=== PATIENT | female | born 1970 | race Caucasian/White ===

== ENCOUNTER 2023-01-19 21:30 | Inpatient (IN) ==
[2023-01-19 22:20] LABS: Basophils # (auto) 0.07 K/uL (0-0.2); Eosinophils # (auto) 0.09 K/uL (0-0.50); Eosinophils % (auto) 1.2 %; Hematocrit (blood only) 40.4 % (37.0-47.0); Hemoglobin 13.9 g/dl (12.0-16.0); Immature Granulocytes # (auto) 0.01 K/uL (0.01-0.20); Immature Granulocytes % (auto) 0.1 %; Lymphocytes # (auto) 1.71 K/uL (1.2-3.4); Lymphocytes % (auto) 23.3 %; Mean Corpuscular Hemoglobin 31.4 pg (25.0-34.0); Mean Corpuscular Hgb Conc 34.4 g/dL (32.0-36.0); Mean Corpuscular Volume 91.4 fL (80.0-100.0); Mean Platelet Volume 9.2 fL (9.4-12.4); Monocytes # (auto) 0.47 K/uL (0.11-0.59); Monocytes % (auto) 6.4 %; Neutrophils # (auto) 4.98 K/uL (1.40-6.50); Platelet Count 283 K/uL (130-400); RDW Coefficient of Variation 12.4 % (11.5-14.5); RDW Standard Deviation 41.2 fL (36.4-46.3); Red Blood Count 4.42 M/uL (4.20-5.40); White Blood Count 7.33 K/ul (4.8-10.8)
[2023-01-19 22:23] LABS: Appearance Urine Clear (Clear); Bacteria Urine Automated Negative (Negative); Bilirubin Urine Negative (Negative); Blood Urine Negative (Negative); Cast Urine Automated 0 /lpf (0-5); Color Urine Yellow; Glucose Urine UA Negative (Negative); Ketones Urine Negative (Negative); Leukocyte Esterase Urine Trace (Negative); Nitrite Urine Negative (Negative); Protein Urine Negative (Negative); RBC Urine Automated 0-4 /hpf (0-4); Specific Gravity Urine 1.006 (1.000-1.030); Urobilinogen Urine Negative (Negative); pH Urine 5.5 (4.5-7.5)
[2023-01-19 22:39] LABS: Acetaminophen < 3 ug/ml (10-30); Salicylate < 3.0 mg/dl (3.0-30)
[2023-01-19 22:41] LABS: Albumin Globulin Ratio 1.5 (0.9-2); Albumin Level 4.6 gm/dl (3.4-5.0); BUN Creatinine Ratio 15.1 (10-20); Bilirubin,Total 0.4 mg/dl (0.2-1.0); Calcium 9.1 mg/dl (8.6-10.3); Creatinine Clr Calc Pharmacy 62.5 ml/min; Est GFR (African American) 81.3 ml/min; Est GFR (Non-African American) 70.2 ml/min; Globulin 3.1 gm/dl (2.5-4.0); Potassium 3.8 mmol/L (3.5-5.1); Total Protein 7.7 gm/dl (6.0-8.3)
[2023-01-19 23:02] LABS: Amphetamines+Metham, Urine Pos (Neg); Barbiturates, Urine Neg (Neg); Benzodiazepine, Urine Neg (Neg); Cocaine, Urine Neg (Neg); MDMA (Ecstacy), Urine Neg (Neg); Methadone, Urine Neg (Neg); Opiate, Urine Neg (Neg); Phencyclidine, Urine Neg (Neg)
[2023-01-19] MEDS ORDERED: LIDOCAINE/EPINEPH/TETRACAINE 1 EA SYR EXT STA (23:06)
--- NOTE | 2023-01-19 23:59 | Emergency Department Note ---
Impression & Plan Mood disorder, Alcohol intoxication, Multiple abrasions, Superficial laceration of forearm, Forehead contusion ED Provider Note INFORMANT: Patient ED PROVIDER(S): Eliseo Dave MD CHIEF COMPLAINT: Mental health evaluation PLAN: Disposition: Admitted Condition: Good Outpatient prescription management: none Referral: None MEDICAL DECISION MAKING: Patient presented because of concerns for mental health evaluation. She had multiple superficial lacerations and abrasions on the arms. Let gel was applied to wound wound after the others were cleansed. This did require suturing. This was done by Joao GUADARRAMA. Please see his note. Patient's CBC and chemistry panel were unremarkable. LFTs negative. Talk screen negative. The patient did have a mild elevation of blood alcohol level 86 mg/dL. Head CT was performed and was negative for acute intracranial findings. Patient was evaluated by the ED psychiatric trimming caser. Patient treatment was felt to be appropriate. Patient was referred to [address] [place] [address] for inpatient treatment. Patient was admitted for further management. Discussed with ED psychiatric trimming caser. After review of the information above and other included data, I feel the patient requires admission. Triage Nursing notes reviewed and agree them. Vital Signs: reviewed and remarkable for no significant abnormalities Prior /Outside records reviewed: none Differential diagnosis: Mood disorder, infection, hypoglycemia, electrolyte abnormalities, cardiac sources, intracerebral event, toxicologic, trauma, neurologic, as well as other pathologies. Diagnostics, as interpreted by me: ECG: none Cardiac Monitoring: none Medical decision rules: none Imaging studies: Head CT: A noncontrast CT scan of the head was performed and was negative for tumor, fracture, intracranial hemorrhage, or other acute pathology. HPI: The patient is a 52 year old female who presents to the Emergency Room with complaints of mental health evaluation. Patient had thoughts of self-harm. This started tonight and resulted in her taking a knife and cutting herself on both arms. Patient also took a metal bah and struck herself in the head causing a contusion to the right forehead. Family noted moderate amount of bleeding from the wounds on the arms.. The patient also notes the following associated symptoms, feeling depressed. Patient did admit to alcohol use. Patient does see psychiatry.Tetanus up-to-date. Current pain is rated as 0/10. Denies recent illness. Pt denies LOC, headache, fevers, chills, diaphoresis, visual changes, neck pain, chest pain, breathing difficulties, nausea, vomiting, abdominal pain, back pain, melena, hematochezia, urinary symptoms, numbness, weakness, lymphadenopathy, rash, or other complaints. PAST MEDICAL HISTORY: See Below, depression PAST SURGICAL HISTORY: See Below, SOCIAL HISTORY: See Below, occasional alcohol HOME MEDICATIONS: See Below ALLERGIES: See Below VITALS: See Below PHYSICAL EXAMINATION: GENERAL: Awake, depressed-appearing, in no distress HENT: Normocephalic, atraumatic. Oropharynx unremarkable. EYES: Normal conjunctiva. Sclera non-icteric. NECK: Inspection normal. Non-tender. Supple. No nuchal rigidity. FROM. No masses. RESPIRATORY: Clear to auscultation. No wheezes. No rales. Normal respiratory e ffort. CARDIAC: Normal rate. Normal rhythm. No murmurs. No rubs. Extremities warm and well perfused. Pulses equal. No JVD. GI: Soft, non-distended. No tenderness to palpation. No rebound or guarding. No masses. RECTAL: Deferred. MUSCULOSKELETAL: Multiple superficial abrasions and superficial laceration noted to both arms. 1 deeper laceration on the left forearm, dorsal aspect. Chest examination reveals no tenderness. The back is symmetrical on inspection without obvious abnormality. There is no CVA tenderness to palpation. No joint edema. LOWER EXTREMITIES: Calves are equal size bilaterally and non-tender. No edema. No discoloration. NEURO: Normal sensorium. No sensory or motor deficits noted. SKIN: No rash or jaundice noted. PSYCH: Depressed mood and flat affect. Poor eye contact. Positive SI. No HI. 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 Beliefs That Will Affect Care: None Feels Safe at Home: Yes Gender Identity: Female Assistive Devices: Glasses Allergies Allergies Allergy/AdvReac Type Severity Reaction Status Date / Time diphenhydramine AdvReac Intermediate Anxiety Verified 01/20/23 16:35 hydroxyzine AdvReac Intermediate Anxiety Verified 01/20/23 16:35 Home Meds Home Medications Medication Instructions Recorded Confirmed atenolol 25 mg tablet 25 mg PO BID 12/18/21 01/20/23 escitalopram oxalate 20 mg tablet 30 mg PO DAILY 12/18/21 01/20/23 gabapentin 300 mg capsule 300 mg PO QID PRN Anxiety 12/18/21 01/20/23 naproxen 500 mg tablet 500 mg PO BID PRN Pain 12/18/21 01/20/23 prazosin 2 mg capsule 5 mg PO HS 12/18/21 01/20/23 aripiprazole 2 mg tablet 2 mg PO DAILY 01/20/23 01/20/23 dextroamphetamine-amphetamine 20 20 mg PO BIDM 01/20/23 01/20/23 mg tablet Results & Data (ED) Vital Signs Vital Signs - 24 hr 01/19/23 21:32 Temperature 36.2 C L Temperature Source Temporal Artery Scan Pulse Rate 83 Respiratory Rate 18 Respiratory Effort / Characteristics Non-Labored Spontaneous Respiratory Depth Normal Respiratory Pattern Regular Blood Pressure 115/80 Blood Pressure Mean 91 Pulse Oximetry 97 Oxygen Delivery Method Room Air Sepsis Recent Fever Within 48 Hours No Sepsis New/Unexplained Change in Mental Status Yes Sepsis Action Taken by Nursing No Action Required Laboratory Data 01/19/23 21:52 01/19/23 21:52 Lab Results 01/19/23 01/19/23 01/19/23 Range/Units 21:52 21:52 21:52 WBC 7.33 (4.8-10.8) K/ul RBC 4.42 (4.20-5.40) M/uL Hgb 13.9 (12.0-16.0) g/dl Hct 40.4 (37.0-47.0) % MCV 91.4 (80.0-100.0) fL MCH 31.4 (25.0-34.0) pg MCHC 34.4 (32.0-36.0) g/dL RDW Std Deviation 41.2 (36.4-46.3) fL RDW Coeff of Debbie 12.4 (11.5-14.5) % Plt Count 283 (130-400) K/uL MPV 9.2 L (9.4-12.4) fL Immature Gran % (Auto) 0.1 % Neut % (Auto) 68.0 % Lymph % (Auto) 23.3 % Meade % (Auto) 6.4 % Eos % (Auto) 1.2 % Baso % (Auto) 1.0 % Neut # (Auto) 4.98 (1.40-6.50) K/uL Lymph # (Auto) 1.71 (1.2-3.4) K/uL Meade # (Auto) 0.47 (0.11-0.59) K/uL Eos # (Auto) 0.09 (0-0.50) K/uL Baso # (Auto) 0.07 (0-0.2) K/uL Immature Gran # (Auto) 0.01 (0.01-0.20) K/uL Sodium 139 (136-145) mmol/L Potassium 3.8 (3.5-5.1) mmol/L Chloride 104 (98-107) mmol/L Carbon Dioxide 30 (21-32) mmol/L Anion Gap 5 (3-11) BUN 14 (6-23) mg/dl Creatinine 0.93 (0.6-1.2) mg/dl Est Cr Clr Drug Dosing 62.5 ml/min Est GFR ( Amer) 81.3 ml/min Est GFR (Non-Af Amer) 70.2 ml/min BUN/Creatinine Ratio 15.1 (10-20) Glucose 74 (70-99(Fasting)) mg/dl Calcium 9.1 (8.6-10.3) mg/dl Total Bilirubin 0.4 (0.2-1.0) mg/dl AST 19 (13-39) U/L ALT 12 (7-52) U/L Alkaline Phosphatase 68 (34-104) U/L Total Protein 7.7 (6.0-8.3) gm/dl Albumin 4.6 (3.4-5.0) gm/dl Globulin 3.1 (2.5-4.0) gm/dl Albumin/Globulin Ratio 1.5 (0.9-2) TSH 1.656 (0.300-4.500) uIu/ml Urine Color Urine Appearance (Clear) Urine pH (4.5-7.5) Ur Specific [place] (1.000-1.030) Urine Protein (Negative) Urine Glucose (UA) (Negative) Urine Ketones (Negative) Urine Blood (Negative) Urine Nitrite (Negative) Urine Bilirubin (Negative) Urine Urobilinogen (Negative) Ur Leukocyte Esterase (Negative) Urine WBC (Auto) (0-5) /hpf Urine RBC (Auto) (0-4) /hpf U Hyaline Cast (Auto) (0-5) /lpf U Epithel Cells (Auto) (0-5) /lpf Urine Bacteria (Auto) (Negative) POC Ur Test (NEG) Salicylates (3.0-30) mg/dl Urine Opiates Screen (Neg) Ur Methadone, Qual (Neg) Acetaminophen (10-30) ug/ml Urine Barbiturates (Neg) Ur Phencyclidine (PCP) (Neg) U Amphetamines Confirm (<250) ng/mL U Amphetamin/Meth Scrn (Neg) U Methamphetamin Confrm (<250) ng/mL MDMA (Ecstasy) Screen (Neg) U Benzodiazepines Scrn (Neg) Ur Cocaine Metabolite (Neg) U Marijuana (THC) Screen (Neg) Drug Screen Comment Ethyl Alcohol mg/dL (<10.0) mg/dl SARS-CoV-2, RNA, NAAT (NEGATIVE) 01/19/23 01/19/23 01/19/23 Range/Units 21:52 21:52 21:52 WBC (4.8-10.8) K/ul RBC (4.20-5.40) M/uL Hgb (12.0-16.0) g/dl Hct (37.0-47.0) % MCV (80.0-100.0) fL MCH (25.0-34.0) pg MCHC (32.0-36.0) g/dL RDW Std Deviation (36.4-46.3) fL RDW Coeff of Debbie (11.5-14.5) % Plt Count (130-400) K/uL MPV (9.4-12.4) fL Immature Gran % (Auto) % Neut % (Auto) % Lymph % (Auto) % [place] % (Auto) % Eos % (Auto) % Baso % (Auto) % Neut # (Auto) (1.40-6.50) K/uL Lymph # (Auto) (1.2-3.4) K/uL [place] # (Auto) (0.11-0.59) K/uL Eos # (Auto) (0-0.50) K/uL Baso # (Auto) (0-0.2) K/uL Immature Gran # (Auto) (0.01-0.20) K/uL Sodium (136-145) mmol/L Potassium (3.5-5.1) mmol/L Chloride (98-107) mmol/L Carbon Dioxide (21-32) mmol/L Anion Gap (3-11) BUN (6-23) mg/dl Creatinine (0.6-1.2) mg/dl Est Cr Clr Drug Dosing ml/min Est GFR ( Amer) ml/min Est GFR (Non-Af Amer) ml/min BUN/Creatinine Ratio (10-20) Glucose (70-99(Fasting)) mg/dl Calcium (8.6-10.3) mg/dl Total Bilirubin (0.2-1.0) mg/dl AST (13-39) U/L ALT (7-52) U/L Alkaline Phosphatase (34-104) U/L Total Protein (6.0-8.3) gm/dl Albumin (3.4-5.0) gm/dl Globulin (2.5-4.0) gm/dl Albumin/Globulin Ratio (0.9-2) TSH (0.300-4.500) uIu/ml Urine Color Yellow Urine Appearance Clear (Clear) Urine pH 5.5 (4.5-7.5) Ur Specific [place] 1.006 (1.000-1.030) Urine Protein Negative (Negative) Urine Glucose (UA) Negative (Negative) Urine Ketones Negative (Negative) Urine Blood Negative (Negative) Urine Nitrite Negative (Negative) Urine Bilirubin Negative (Negative) Urine Urobilinogen Negative (Negative) Ur Leukocyte Esterase Trace H (Negative) Urine WBC (Auto) 5-10 H (0-5) /hpf Urine RBC (Auto) 0-4 (0-4) /hpf U Hyaline Cast (Auto) 0 (0-5) /lpf U Epithel Cells (Auto) 10-20 H (0-5) /lpf Urine Bacteria (Auto) Negative (Negative) POC Ur Test (NEG) Salicylates < 3.0 L (3.0-30) mg/dl Urine Opiates Screen (Neg) Ur Methadone, Qual (Neg) Acetaminophen < 3 L (10-30) ug/ml Urine Barbiturates (Neg) Ur Phencyclidine (PCP) (Neg) U Amphetamines Confirm (<250) ng/mL U Amphetamin/Meth Scrn (Neg) U Methamphetamin Confrm (<250) ng/mL MDMA (Ecstasy) Screen (Neg) U Benzodiazepines Scrn (Neg) Ur Cocaine Metabolite (Neg) U Marijuana (THC) Screen (Neg) Drug Screen Comment Ethyl Alcohol mg/dL 86.8 H (<10.0) mg/dl SARS-CoV-2, RNA, NAAT (NEGATIVE) 01/19/23 01/19/23 01/19/23 Range/Units 21:52 21:52 21:52 WBC (4.8-10.8) K/ul RBC (4.20-5.40) M/uL Hgb (12.0-16.0) g/dl Hct (37.0-47.0) % MCV (80.0-100.0) fL MCH (25.0-34.0) pg MCHC (32.0-36.0) g/dL RDW Std Deviation (36.4-46.3) fL RDW Coeff of Debbie (11.5-14.5) % Plt Count (130-400) K/uL MPV (9.4-12.4) fL Immature Gran % (Auto) % Neut % (Auto) % Lymph % (Auto) % [place] % (Auto) % Eos % (Auto) % Baso % (Auto) % Neut # (Auto) (1.40-6.50) K/uL Lymph # (Auto) (1.2-3.4) K/uL [place] # (Auto) (0.11-0.59) K/uL Eos # (Auto) (0-0.50) K/uL Baso # (Auto) (0-0.2) K/uL Immature Gran # (Auto) (0.01-0.20) K/uL Sodium (136-145) mmol/L Potassium (3.5-5.1) mmol/L Chloride (98-107) mmol/L Carbon Dioxide (21-32) mmol/L Anion Gap (3-11) BUN (6-23) mg/dl Creatinine (0.6-1.2) mg/dl Est Cr Clr Drug Dosing ml/min Est GFR ( Amer) ml/min Est GFR (Non-Af Amer) ml/min BUN/Creatinine Ratio (10-20) Glucose (70-99(Fasting)) mg/dl Calcium (8.6-10.3) mg/dl Total Bilirubin (0.2-1.0) mg/dl AST (13-39) U/L ALT (7-52) U/L Alkaline Phosphatase (34-104) U/L Total Protein (6.0-8.3) gm/dl Albumin (3.4-5.0) gm/dl Globulin (2.5-4.0) gm/dl Albumin/Globulin Ratio (0.9-2) TSH (0.300-4.500) uIu/ml Urine Color Urine Appearance (Clear) Urine pH (4.5-7.5) Ur Specific [place] (1.000-1.030) Urine Protein (Negative) Urine Glucose (UA) (Negative) Urine Ketones (Negative) Urine Blood (Negative) Urine Nitrite (Negative) Urine Bilirubin (Negative) Urine Urobilinogen (Negative) Ur Leukocyte Esterase (Negative) Urine WBC (Auto) (0-5) /hpf Urine RBC (Auto) (0-4) /hpf U Hyaline Cast (Auto) (0-5) /lpf U Epithel Cells (Auto) (0-5) /lpf Urine Bacteria (Auto) (Negative) POC Ur Test NEG (NEG) Salicylates (3.0-30) mg/dl Urine Opiates Screen Neg (Neg) Ur Methadone, Qual Neg (Neg) Acetaminophen (10-30) ug/ml Urine Barbiturates Neg (Neg) Ur Phencyclidine (PCP) Neg (Neg) U Amphetamines Confirm (<250) ng/mL U Amphetamin/Meth Scrn Pos H (Neg) U Methamphetamin Confrm (<250) ng/mL MDMA (Ecstasy) Screen Neg (Neg) U Benzodiazepines Scrn Neg (Neg) Ur Cocaine Metabolite Neg (Neg) U Marijuana (THC) Screen Neg (Neg) Drug Screen Comment Ethyl Alcohol mg/dL (<10.0) mg/dl SARS-CoV-2, RNA, NAAT NEGATIVE (NEGATIVE) 01/19/23 Range/Units 21:52 WBC (4.8-10.8) K/ul RBC (4.20-5.40) M/uL Hgb (12.0-16.0) g/dl Hct (37.0-47.0) % MCV (80.0-100.0) fL MCH (25.0-34.0) pg MCHC (32.0-36.0) g/dL RDW Std Deviation (36.4-46.3) fL RDW Coeff of Debbie (11.5-14.5) % Plt Count (130-400) K/uL MPV (9.4-12.4) fL Immature Gran % (Auto) % Neut % (Auto) % Lymph % (Auto) % [place] % (Auto) % Eos % (Auto) % Baso % (Auto) % Neut # (Auto) (1.40-6.50) K/uL Lymph # (Auto) (1.2-3.4) K/uL [place] # (Auto) (0.11-0.59) K/uL Eos # (Auto) (0-0.50) K/uL Baso # (Auto) (0-0.2) K/uL Immature Gran # (Auto) (0.01-0.20) K/uL Sodium (136-145) mmol/L Potassium (3.5-5.1) mmol/L Chloride (98-107) mmol/L Carbon Dioxide (21-32) mmol/L Anion Gap (3-11) BUN (6-23) mg/dl Creatinine (0.6-1.2) mg/dl Est Cr Clr Drug Dosing ml/min Est GFR ( Amer) ml/min Est GFR (Non-Af Amer) ml/min BUN/Creatinine Ratio (10-20) Glucose (70-99(Fasting)) mg/dl Calcium (8.6-10.3) mg/dl Total Bilirubin (0.2-1.0) mg/dl AST (13-39) U/L ALT (7-52) U/L Alkaline Phosphatase (34-104) U/L Total Protein (6.0-8.3) gm/dl Albumin (3.4-5.0) gm/dl Globulin (2.5-4.0) gm/dl Albumin/Globulin Ratio (0.9-2) TSH (0.300-4.500) uIu/ml Urine Color Urine Appearance (Clear) Urine pH (4.5-7.5) Ur Specific [place] (1.000-1.030) Urine Protein (Negative) Urine Glucose (UA) (Negative) Urine Ketones (Negative) Urine Blood (Negative) Urine Nitrite (Negative) Urine Bilirubin (Negative) Urine Urobilinogen (Negative) Ur Leukocyte Esterase (Negative) Urine WBC (Auto) (0-5) /hpf Urine RBC (Auto) (0-4) /hpf U Hyaline Cast (Auto) (0-5) /lpf U Epithel Cells (Auto) (0-5) /lpf Urine Bacteria (Auto) (Negative) POC Ur Test (NEG) Salicylates (3.0-30) mg/dl Urine Opiates Screen (Neg) Ur Methadone, Qual (Neg) Acetaminophen (10-30) ug/ml Urine Barbiturates (Neg) Ur Phencyclidine (PCP) (Neg) U Amphetamines Confirm 4355 H (<250) ng/mL U Amphetamin/Meth Scrn (Neg) U Methamphetamin Confrm NEGATIVE (<250) ng/mL MDMA (Ecstasy) Screen (Neg) U Benzodiazepines Scrn (Neg) Ur Cocaine Metabolite (Neg) U Marijuana (THC) Screen (Neg) Drug Screen Comment SEE NOTE Ethyl Alcohol mg/dL (<10.0) mg/dl SARS-CoV-2, RNA, NAAT (NEGATIVE) Administered Medications Discontinued Medications Amphetamine/Dextroamphetamine (Amphetamine Asp/Sulf/Dextramph 20 Mg Tab) 20 mg PO BIDM [facility] Stop: 02/03/23 17:44 Last Admin: 01/21/23 08:59 Dose: 20 mg Documented By: Admin: 01/20/23 16:53 Dose: Not Given Documented By: [id number] Aripiprazole (Aripiprazole 1 Mg/Ml Oral Soln 150 Ml Btl) 2 mg PO DAILY [facility] Stop: 02/19/23 16:59 Last Admin: 01/21/23 09:00 Dose: 2 mg Documented By: Admin: 01/20/23 17:36 Dose: 2 mg Documented By: [id number] Atenolol (Atenolol 25 Mg Tablet) 25 mg PO BID [facility] Stop: 02/19/23 20:59 Last Admin: 01/21/23 09:05 Dose: 25 mg Documented By: Admin: 01/20/23 21:02 Dose: 25 mg Documented By: MARTI Escitalopram Oxalate (Escitalopram Oxalate 10 Mg Tab) 30 mg PO DAILY SISSY Stop: 02/19/23 16:14 Last Admin: 01/21/23 08:59 Dose: 30 mg Documented By: Admin: 01/20/23 17:23 Dose: 30 mg Documented By: [id number] Lidocaine (Lidocaine/Epineph/Tetracaine 1 Ea Syr) 1 each EXT NOW STA Stop: 01/19/23 23:07 Last Admin: 01/19/23 23:22 Dose: 1 each Documented By: BRENNAN Naproxen (Naproxen 250 Mg Tab) 500 mg PO BID PRN PRN Reason: Pain Stop: 02/19/23 16:14 Last Admin: 01/21/23 09:05 Dose: 500 mg Documented By: HCRISTINE Prazosin HCl (Prazosin Hcl 1 Mg Cap) 6 mg PO HS SISSY Stop: 02/19/23 21:59 Last Admin: 01/20/23 21:03 Dose: 6 mg Documented By: MARTI Imaging Data Radiologist's Impression: Head CT 01/19/23 23:59 Exam(s): CT HEAD Without Contrast EXAM: CT Head Without Intravenous Contrast CLINICAL HISTORY: Reason for exam: trauma, right forehead contusion. TECHNIQUE: Axial computed tomography images of the head/brain without intravenous contrast. CTDI is 38.11 mGy and DLP is 537.48 mGy-cm. Automated exposure control was utilized for the study. A dose lowering technique was utilized adhering to the principles of ALARA. COMPARISON: No relevant prior studies available. FINDINGS: Brain: No hemorrhage. No apparent acute cortical infarct. No mass lesion or midline shift. Ventricles: No hydrocephalus. Bones/joints: No acute fracture. Soft tissues: Unremarkable. Sinuses: No acute sinusitis. Mastoid air cells: No mastoid effusion. Orbits: Unremarkable as visualized. IMPRESSION: No acute intracranial process. Electronically signed by: Gregg Gandara M.D. 01/20/23 00:41 AM Discharge Plan Visit Data Chief Complaint: Mental Health Evaluation Stated Complaint: MENTAL HEALTH EVALUATION, SELF HARM ED Provider: Eliseo Dave Discharge Problem: Mood disorder, Alcohol intoxication, Multiple abrasions, Superficial laceration of forearm, Forehead contusion Patient Disposition: Admitted As Inpatient Discharge Instructions Interventions: ED Discharge Assessment Last Done: 01/20/23 03:42
--- NOTE | 2023-01-20 00:17 | Emergency Department Note ---
ED Visit Note Patient was seen and evaluated at the request of my attending physician, Dr. Dave, for a left wrist/forearm laceration. Patient is being evaluated in the emergency department for a mental health evaluation. Her wound was self- inflicted. Please see Dr. Dave's dictation for full history of present illness and emergency department course outside of this repair. On examination the patient does have a roughly 3.0 cm gaping laceration to the volar aspect of the left forearm. This will require repair. The patient is amenable to repair. Laceration repair. Patient elects to have their laceration repaired. Verbal consent was obtained to perform the procedure. There is an abundance of materials available for the procedure. Patient is not allergic to latex. Using sterile technique the wound was cleaned with Betadine. The area was sterilely draped. LET gel was used to anesthetize the laceration. Once the patient was anesthetized, the wound was copiously irrigated under pressure with sterile saline. The wound was explored and there were no deep structures injured such as tendons, bone, or significant blood vessels. The laceration was repaired using 3 simple interrupted 5-0 nylon sutures with the wound edges being well approximated. Hemostasis was achieved. The area was cleaned with sterile saline and dressed with bacitracin ointment and bandage. Patient tolerated the procedure well without complications. Blood loss was negligible. .
--- NOTE | 2023-01-20 00:42 | CT Scan Report ---
Exam(s): CT HEAD Without Contrast EXAM: CT Head Without Intravenous Contrast CLINICAL HISTORY: Reason for exam: trauma, right forehead contusion. TECHNIQUE: Axial computed tomography images of the head/brain without intravenous contrast. CTDI is 38.11 mGy and DLP is 537.48 mGy-cm. Automated exposure control was utilized for the study. A dose lowering technique was utilized adhering to the principles of ALARA. COMPARISON: No relevant prior studies available. FINDINGS: Brain: No hemorrhage. No apparent acute cortical infarct. No mass lesion or midline shift. Ventricles: No hydrocephalus. Bones/joints: No acute fracture. Soft tissues: Unremarkable. Sinuses: No acute sinusitis. Mastoid air cells: No mastoid effusion. Orbits: Unremarkable as visualized. IMPRESSION: No acute intracranial process. Electronically signed by: Gregg Gandara M.D. 01/20/23 00:41 AM
[2023-01-20] MEDS ORDERED: hydrOXYzine HCl 25 MG TAB PO PRN ×2 (03:01)
[2023-01-20] MEDS ORDERED: MAGNESIUM HYDROXIDE SUSP 30 ML UDC PO PRN (03:01)
[2023-01-20] MEDS ORDERED: SODIUM CHLORIDE 0.65% NA SOLN 45 ML (OCEAN) PRN (03:01)
[2023-01-20] MEDS ORDERED: ACETAMINOPHEN 325 MG TAB PO PRN (03:01)
[2023-01-20] MEDS ORDERED: ALUMINUM/MAGNESIUM SUSP 30 ML UDC PO PRN (03:01)
[2023-01-20] MEDS ORDERED: BISMUTH SUBSALICYLATE LIQD 236 ML PO PRN (03:01)
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
[2023-01-20] MEDS ORDERED: NAPROXEN 250 MG TAB PO PRN (16:15)
[2023-01-20] MEDS ORDERED: GABAPENTIN 300 MG CAP PO PRN (16:15)
[2023-01-20] MEDS: AMPHETAMINE ASP/SULF/DEXTRAMPH 20 MG TAB PO SCH (16:53)
[2023-01-20] MEDS: ESCITALOPRAM OXALATE 10 MG TAB PO SCH (17:23)
[2023-01-20] MEDS: ARIPIprazole 1 MG/ML ORAL SOLN 150 ML BTL PO SCH (17:36)
[2023-01-20] MEDS: ATENOLOL 25 MG TABLET PO SCH (21:02)
[2023-01-20] MEDS ORDERED: PRAZOSIN HCL 1 MG CAP PO SCH ×2 (22:00)
[2023-01-21] MEDS: AMPHETAMINE ASP/SULF/DEXTRAMPH 20 MG TAB PO SCH (08:59)
[2023-01-21] MEDS: ESCITALOPRAM OXALATE 10 MG TAB PO SCH (08:59)
[2023-01-21] MEDS: ARIPIprazole 1 MG/ML ORAL SOLN 150 ML BTL PO SCH (09:00)
[2023-01-21] MEDS: ATENOLOL 25 MG TABLET PO SCH (09:05)
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
[2023-01-22 11:03] LABS: Amphetamine Urine, Confirm 4355 ng/mL (<250); Methamphetamine, Ur Confirm NEGATIVE ng/mL (<250)
== END 2023-01-21 14:10 | disposition home or self-care (01) | DRG 882 ==
LOC: ED 21:30 → 3S 01-20 03:01

== ENCOUNTER 2024-11-26 16:27 | Inpatient (IN) ==
[2024-11-26 17:21] LABS: Basophils # (auto) 0.03 K/uL (0.00-0.20); Basophils % (auto) 0.6 %; Eosinophils # (auto) 0.05 K/uL (0.00-0.50); Hematocrit (blood only) 40.7 % (37.0-47.0); Hemoglobin 14.3 g/dl (12.0-16.0); Immature Granulocytes # (auto) 0.01 K/uL (0.01-0.20); Immature Granulocytes % (auto) 0.2 %; Lymphocytes # (auto) 0.76 K/uL (1.20-3.40); Lymphocytes % (auto) 15.6 %; Mean Corpuscular Hemoglobin 31.7 pg (25.0-34.0); Mean Corpuscular Hgb Conc 35.1 g/dL (32.0-36.0); Mean Corpuscular Volume 90.2 fL (80.0-100.0); Monocytes # (auto) 0.47 K/uL (0.11-0.59); Monocytes % (auto) 9.6 %; Neutrophils # (auto) 3.56 K/uL (1.40-6.50); Platelet Count 273 K/uL (130-400); RDW Coefficient of Variation 12.9 % (11.5-14.5); RDW Standard Deviation 42.5 fL (36.4-46.3); Red Blood Count 4.51 M/uL (4.20-5.40); White Blood Count 4.88 K/ul (4.8-10.8)
[2024-11-26 17:33] LABS: Albumin Globulin Ratio 1.3 (0.9-2); Albumin Level 4.4 gm/dl (3.4-5.0); Bilirubin,Total 0.4 mg/dl (0.2-1.0); Globulin 3.3 gm/dl (2.5-4.0); Potassium 3.5 mmol/L (3.5-5.1); Total Protein 7.7 gm/dl (6.0-8.3)
[2024-11-26 17:47] LABS: Influenza A virus by PCR Negative (Neg); Influenza B virus by PCR Negative (Neg); RSV by PCR Negative (Neg); SARS CoV2 RNA(COVID-19) Ceph NEGATIVE (Negative)
--- NOTE | 2024-11-26 19:00 | Emergency Department Note ---
Impression & Plan Anxiety, Depressed mood, Crying ED Provider Note NAME: RUPERT NELSON AGE: 54 SEX: F : 1970 ARRIVES VIA: Walk-In INFORMANT: Patient, ED PROVIDER(S): Omar Prieto MD CHIEF COMPLAINT: "No one is hearing me." MEDICAL DECISION MAKING: Patient presents due to concern for just not feeling quite right. IV was established and blood work was obtained. Patient was seen and evaluated the patient was acutely screaming and crying. Concern for mental wellness. I did have case management speak with the patient. Additional labs were ordered. Blood work shows a normal white count H&H and platelet count. Kidney function is unremarkable with normal lecture lites. Urinalysis shows ketones. Patient denies any dysuria. UPT negative. Salicylate Tylenol and alcohol are negative. UDS positive for amphetamines as well as THC. COVID flu RSV negative. Chest x-ray clear. EKG with nonspecific changes but no reports of any chest pain or shortness of breath. Referrals were made and the patient was accepted to [facility] for inpatient psychiatric treatment. Discussion w/ other healthcare providers: ED case management Prior /Outside records reviewed: None Differential diagnosis: Mood disorder, infection, hypoglycemia, electrolyte abnormalities, dehydration, medication side effect among others were considered. Diagnostics, as interpreted by me: ECG: Sinus tachycardia, rate of 108, normal intervals, normal axis no ST elevations. Medical decision rules: Suicide risk severity score Imaging studies: None HPI: Patient is a 54 year old female with PMH of depression, PTSD presenting to the emergency department with chief concern of anxiety. Reports she has felt anxious and scared all day. She also reports poor sleep this week. She reports home stressors. States she went in a spin last Friday and took lorazepam with alcohol; she presented to [facility] ED for alcohol intoxication at that time and was discharged home after regaining sobriety. Reports she used medical marijuana a few nights ago to help her sleep. Denies alcohol or drug use today. Patient then begins saying that she cannot take it anymore and that she cannot stay in the grade she currently feels. The patient states that she does not want inpatient psychiatric treatment denies any current SI. No HI. No AVH. Patient states that she feels as though "nobody is hearing me." PAST MEDICAL HISTORY: See Below PAST SURGICAL HISTORY: See Below SOCIAL HISTORY: See Below HOME MEDICATIONS: See Below ALLERGIES: See Below VITALS: See Below PHYSICAL EXAMINATION: GENERAL: Screaming and crying at the bedside. EYE EXAM: Normal conjunctiva. PERRL, no anisocoria and EOM's grossly intact w/o pain. OROPHARYNX: Moist mucus membranes, grossly normal dentition. NECK: Trachea midline, no stridor. Supple, no nuchal rigidity, no adenopathy, non-tender. No signs of meningismus. FROM of the neck with good chin to chest and neck extension. LUNGS: Clear to auscultation. Normal chest wall mechanics. HEART: NSR, no MRG. ABDOMEN: Abdomen soft, non-tender, no masses, no rebound or guarding. BACK: No CVA TTP. SKIN: No rashes and no bruising. UPPER EXTREMITIES: Upper extremities are grossly normal. LOWER EXTREMITIES: Grossly normal, no edema. NEURO EXAM: A&O x3, cranial nerves II-XII grossly intact, normal speech, moves all 4 extremities. Psych: Depressed mood, denies SI HI or AVH. Past Med/Surg History Problem List (Updated 11/27/24 @ 00:27 by Omar Prieto MD) Crying (Acute) Depressed mood (Acute) Anxiety (Acute) Positive blood test (Acute) Alcohol use with intoxication (Acute) PTSD (post-traumatic stress disorder) (Chronic) Medical History Forehead contusion Superficial laceration of forearm Multiple abrasions Alcohol intoxication resolved No pertinent family history Status post foot surgery Frostbite with tissue necrosis Surgical History History of bunionectomy of left great toe "06/28/2015" History of bunionectomy of right great toe "10/11/15-performed by Dr. Soto" Social History Smoking Status: Never smoker Preferred Language: [place] Communication Ability: Effective Candy Dipper Required: No Beliefs That Will Affect Care: None Feels Safe at Home: Yes Gender Identity: Female Assistive Devices: Glasses Allergies Allergies Allergy/AdvReac Type Severity Reaction Status Date / Time diphenhydramine AdvReac Intermediate Anxiety Verified 01/20/23 16:35 hydroxyzine AdvReac Intermediate Anxiety Verified 01/20/23 16:35 Home Meds Home Medications Medication Instructions Recorded Confirmed atenolol 25 mg tablet 25 mg PO BID 12/18/21 11/26/24 gabapentin 300 mg capsule 300 mg PO QID PRN Anxiety 12/18/21 11/26/24 naproxen 500 mg tablet 500 mg PO BID PRN Pain 12/18/21 11/26/24 prazosin 2 mg capsule 5 mg PO HS 12/18/21 11/26/24 Prozac 40 mg PO QAM 11/26/24 11/26/24 Vyvanse 70 mg PO QAM 11/26/24 11/26/24 atomoxetine 40 mg capsule 40 mg PO QAM 11/26/24 11/26/24 (Strattera) Results & Data (ED) Vital Signs Vital Signs - 24 hr 11/26/24 16:37 11/26/24 18:53 11/26/24 19:01 Temperature 36.8 C Temperature Source Temporal Artery Scan Pulse Rate 128 H 103 H Pulse Rate [Apical] 98 H Pulse Rate [Finger] Respiratory Rate 18 16 Respiratory Effort / Characteristics Non-Labored Spontaneous Non-Labored Spontaneous Respiratory Depth Normal Normal Respiratory Pattern Regular Blood Pressure 138/91 Blood Pressure [Right Arm] 134/95 Blood Pressure Mean 106 Blood Pressure Mean [Right Arm] 108 Blood Pressure Position Sitting Blood Pressure Position [Right Arm] Semi-fowlers Pulse Oximetry 97 95 Oxygen Delivery Method Room Air Room Air Sepsis Recent Fever Within 48 Hours No Sepsis New/Unexplained Change in Mental Status N/A Sepsis Action Taken by Nursing No Action Required 11/26/24 21:09 11/26/24 23:09 Temperature Temperature Source Pulse Rate Pulse Rate [Apical] Pulse Rate [Finger] 73 74 Respiratory Rate 18 16 Respiratory Effort / Characteristics Non-Labored Spontaneous Non-Labored Spontaneous Respiratory Depth Normal Normal Respiratory Pattern Regular Blood Pressure Blood Pressure [Right Arm] 127/85 118/80 Blood Pressure Mean Blood Pressure Mean [Right Arm] 99 92 Blood Pressure Position Blood Pressure Position [Right Arm] Lying Pulse Oximetry 98 99 Oxygen Delivery Method Room Air Room Air Sepsis Recent Fever Within 48 Hours Sepsis New/Unexplained Change in Mental Status Sepsis Action Taken by Intermediate Medications Current Medication List: was personally reviewed by me Laboratory Data Attestation: I reviewed the patient's lab results. 11/26/24 16:56 11/26/24 16:56 Lab Results 11/26/24 11/26/24 11/26/24 Range/Units 16:56 19:45 21:00 WBC 4.88 (4.8-10.8) K/ul RBC 4.51 (4.20-5.40) M/uL Hgb 14.3 (12.0-16.0) g/dl Hct 40.7 (37.0-47.0) % MCV 90.2 (80.0-100.0) fL MCH 31.7 (25.0-34.0) pg MCHC 35.1 (32.0-36.0) g/dL RDW Std Deviation 42.5 (36.4-46.3) fL RDW Coeff of Debbie 12.9 (11.5-14.5) % Plt Count 273 (130-400) K/uL MPV 10.0 (9.4-12.4) fL Immature Gran % (Auto) 0.2 % Neut % (Auto) 73.0 % Lymph % (Auto) 15.6 % Dane % (Auto) 9.6 % Eos % (Auto) 1.0 % Baso % (Auto) 0.6 % Neut # (Auto) 3.56 (1.40-6.50) K/uL Lymph # (Auto) 0.76 L (1.20-3.40) K/uL Dane # (Auto) 0.47 (0.11-0.59) K/uL Eos # (Auto) 0.05 (0.00-0.50) K/uL Baso # (Auto) 0.03 (0.00-0.20) K/uL Immature Gran # (Auto) 0.01 (0.01-0.20) K/uL Sodium 137 (136-145) mmol/L Potassium 3.5 (3.5-5.1) mmol/L Chloride 102 (98-107) mmol/L Carbon Dioxide 25 (21-32) mmol/L Anion Gap 10 (3-11) BUN 12 (6-23) mg/dl Creatinine 0.86 (0.6-1.2) mg/dl Est Cr Clr Drug Dosing 66.0 ml/min eGFR 79.73 BUN/Creatinine Ratio 14.0 (10-20) Glucose 95 (70-99(Fasting)) mg/dl Calcium 9.0 (8.6-10.3) mg/dl Total Bilirubin 0.4 (0.2-1.0) mg/dl AST 22 (13-39) U/L ALT 21 (7-52) U/L Alkaline Phosphatase 61 (34-104) U/L Total Protein 7.7 (6.0-8.3) gm/dl Albumin 4.4 (3.4-5.0) gm/dl Globulin 3.3 (2.5-4.0) gm/dl Albumin/Globulin Ratio 1.3 (0.9-2) Urine Color Yellow Urine Appearance Clear (Clear) Urine pH 5.5 (4.5-7.5) Ur Specific [place] 1.030 (1.000-1.030) Urine Protein Negative (Negative) Urine Glucose (UA) Negative (Negative) Urine Ketones 2+ H (Negative) Urine Blood Negative (Negative) Urine Nitrite Negative (Negative) Urine Bilirubin Negative (Negative) Urine Urobilinogen Negative (Negative) Ur Leukocyte Esterase 1+ H (Negative) Urine WBC (Auto) >50 H (0-5) /hpf Urine RBC (Auto) 3-5 H (0-2) /hpf U Hyaline Cast (Auto) 3-5 H (0-2) /lpf U Epithel Cells (Auto) 3-5 H (0-2) /hpf Urine Bacteria (Auto) None Seen (None Seen) Urine Mucus Present A (None Prsent) Urine Test Negative (Negative) Salicylates < 3.0 L (3.0-30) mg/dl Urine Opiates Screen Neg (Neg) Ur Methadone, Qual Neg (Neg) Urine Fentanyl Screen Neg (Neg) Acetaminophen < 3 L (10-30) ug/ml Urine Barbiturates Neg (Neg) Ur Phencyclidine (PCP) Neg (Neg) U Amphetamin/Meth Scrn Pos H (Neg) MDMA (Ecstasy) Screen Neg (Neg) U Benzodiazepines Scrn Neg (Neg) Ur Cocaine Metabolite Neg (Neg) U Marijuana (THC) Screen Pos H (Neg) Ethyl Alcohol mg/dL < 10.0 (<10.0) mg/dl SARS-CoV-2 (PCR) NEGATIVE (Negative) Influenza Type A (PCR) Negative (Neg) Influenza Type B (PCR) Negative (Neg) RSV (RT-PCR) Negative (Neg) Administered Medications Discontinued Medications Lorazepam (Lorazepam 2 Mg/1 Ml Vial) 1 mg IV NOW STA Stop: 11/26/24 19:30 Last Admin: 11/26/24 19:42 Dose: 1 mg Documented By: REYNA Discharge Plan Visit Data Chief Complaint: Mental Health Evaluation Stated Complaint: FATIGUE,NAUSEA,ANXIETY ED Provider: Omar Prieto Discharge Problem: Anxiety, Depressed mood, Crying Forms Stand Alone Forms: [facility] [employer], Suicide Prevention Resources Prescriptions Prescriptions: No Action atenolol 25 mg tablet 25 mg PO BID gabapentin 300 mg capsule 300 mg PO QID PRN (Reason: Anxiety) prazosin 2 mg capsule 5 mg PO HS Patient Comments: Last fill for 5mg, but patient thinks she takes 7mg naproxen 500 mg tablet 500 mg PO BID PRN (Reason: Pain) Vyvanse 70 mg PO QAM Prozac 40 mg PO QAM atomoxetine [Strattera] 40 mg Capsule 40 mg PO QAM Referrals Referrals: Joycelyn Nair DO [Primary Care Provider] -
[2024-11-26] MEDS: LORazepam 2 MG/1 ML VIAL IV STA (19:42)
[2024-11-26 20:27] LABS: Acetaminophen < 3 ug/ml (10-30); Salicylate < 3.0 mg/dl (3.0-30)
[2024-11-26 21:22] LABS: Pregnancy Test, Urine Negative (Negative)
[2024-11-26 21:40] LABS: Appearance Urine Clear (Clear); Bacteria Urine Automated None Seen (None Seen); Bilirubin Urine Negative (Negative); Blood Urine Negative (Negative); Color Urine Yellow; Glucose Urine UA Negative (Negative); Ketones Urine 2+ (Negative); Leukocyte Esterase Urine 1+ (Negative); Mucus Urine Present (None Prsent); Nitrite Urine Negative (Negative); Protein Urine Negative (Negative); Urobilinogen Urine Negative (Negative); WBC Urine Automated >50 /hpf (0-5); pH Urine 5.5 (4.5-7.5)
[2024-11-26 21:42] LABS: Amphetamines+Metham, Urine Pos (Neg); Barbiturates, Urine Neg (Neg); Benzodiazepine, Urine Neg (Neg); Cocaine, Urine Neg (Neg); Fentanyl, Urine Neg (Neg); MDMA (Ecstacy), Urine Neg (Neg); Marijuana, Urine Pos (Neg); Methadone, Urine Neg (Neg); Opiate, Urine Neg (Neg); Phencyclidine, Urine Neg (Neg)
--- OUTSIDE RECORDS SUMMARY | 2024-11-27 04:15 | External Medical Summary | Summary of Care ---
Author Name Unknown Organization [facility] Address [address] [facility] [place] [address] Phone [phone] Care Team Providers Care Manager Media Name Role Phone Joycelyn Nair DO Primary Care Provider Reason for Visit * Reason Onset Date Comments Pre Cert/Prior Auth 11/17/2024 DUPLICATION OF THERAPY Encounter Details Date Type Department Care Team (Late st Contact Info) Description 11/17/2024 Telephone Psychiatry Hollie Cui [address] [place] [address] Joycelyn Shaver MD [address] [place] [address] Pre Cert/Prior Auth (DUPLICATION OF THERAPY) Allergies Active Allergy Reactions Criticality Noted Date Comments Diphenhydramine 02/20/2022 Causes anxiety Hydroxyzine High 01/20/2023 Other Reaction(s): Anxiety documented as of this encounter (statuses as of 11/22/2024) Medications PREVIDENT 5000 BOOSTER PLUS 1.1 % paste APPLY THIN RIBBON OF PREVIDENT TO TOOTHBRUSH. BRUSH THOROUGHLY FOR 2 MINUTES. NO FOOD OR DRINK FOR 30 MINUTES. 3 06/11/20 18 Active Spacer/Aero-Ho lding Chambers Device Use with inhaler. 1 Each 06/28/20 21 Active Albuterol Sulfate HFA 108 (90 Base) MCG/ACT Inhalation Aerosol Solution Inhale 2 Puffs by mouth every 6 hours as needed for Shortness of Breath. 18 g 04/27/20 24 Active Triamcinolone Acetonide 0.1 % External Cream (Aristocort)In dications:Skin neoplasm Apply twice daily to back up to 2 weeks, then taper to weekends only Fri-Fri as needed 80 g 1 06/14/20 24 Active LORazepam 2 MG Oral Tablet (Ativan) Take 1 tablet only for severe anxiety. Can give second dosage in 4 hours if necessary for severe anxiety/panic. 14 Tablet 07/09/20 24 Active Atenolol 25 MG Oral Tablet (Tenormin)Gina cations:HTN, goal below 140/90 Take 1 tablet by mouth twice daily 60 Tablet 5 07/29/20 24 Active Lisdexamfetami ne Dimesylate 70 MG Oral Capsule (Vyvanse) Take 1 Capsule by mouth in the morning. Do not start before November 11, 2024. 30 Capsule 11/11/19 25 Active predniSONE 20 MG Oral Tablet (Deltasone) Take 3 tabs for 3 days, 2 tabs for 3 days, 1 tab for 3 days, 1/2 tab for 3 days 20 Tablet 11/03/19 25 Active Benzonatate 100 MG Oral Capsule Take 1 Capsule by mouth 3 times a day as needed for Cough. 30 Capsule 11/03/19 25 Active Atomoxetine HCl 40 MG Oral Capsule (Strattera) Take 1 Capsule by mouth in the morning. 40 Capsule 1 11/09/19 25 Active Prazosin HCl 5 MG Oral Capsule (Minipress) Take 1 Capsule by mouth every night at bedtime. 30 Capsule 2 11/15/19 25 Active Naproxen 500 MG Oral Tablet (Naprosyn)Gina cations:Tendin itis of right rotator cuff TAKE 1 TABLET BY MOUTH TWICE DAILY WITH MEALS 180 Tablet 1 05/28/20 24 025 Discontinued documented as of this encounter (statuses as of 11/22/2024) Active Problems Problem Noted Date Diagnosed Date Major depressive disorder, recurrent episode, mo derate 01/20/2024 Marital problem involving divorce 01/20/2024 Pain of finger of left hand 07/28/2023 Carpal tunnel syndrome, bilateral 01/22/2023 PTSD (post-traumatic stress disorder) 10/15/2022 HUNT (dyspnea on exertion) 06/28/2021 Food insecurity 06/04/2021 Overview: Per [facility] Protocol Major depressive disorder, recurrent, unspecifie d 01/10/2021 Other social stressor 01/10/2021 Recurrent major depressive disorder, in full rem ission 12/11/2017 documented as of this encounter (statuses as of 11/22/2024) Resolved Problems Problem Noted Date Diagnosed Date Resolved Date Screening-pulmonary TB 09/04/202106/11 Screening for STD (sexually transmitted disease) 07/27/2021 06/11/2024 History of Lyme disease 04/15/201604/26 documented as of this encounter (statuses as of 11/22/2024) Immunizations Name Administration Dates Next Due COVID-19 mRNA, LNP-s, No Pre serve, 2-Dose Series (Moderna) 02/04/2022,07/16/2021 COVID-19 mRNA, LNP-s, No Pre serve, 2-Dose Series (Pfizer) 11/29/2020,11/08/2020 COVID-19, MRNA-LNP, PF, 30 M CG/0.3 mL, 12 YRS AND ABOVE, IM (PFIZER-Comirnat) 08/02/2023 Covid-19, Mrna, Lnp-s, Pf, B ivalent, 30 Mcg, IM, 12 yrs and above (Pfizer) 07/18/2022 HEP A - Hepatitis A (Adult > 18 yrs) 06/20/2015, 07/04/2014 Hepatitis B, 20+ yrs 10/08/2019,04/07/2019,03/1009/07/2019 IPV - Polio Virus Vaccine (Inact) 05/05/2018 MMR - Measles/Mumps/Rubella Vaccine 03/04/2019,0 02/03/2013 Meningococcal MCV4O Conjugat e Vaccine (Menveo) 03/04/2019 PPD 09/04/2021,12/29/2019,12/20/2019 12/31/2019 Seasonal Influenza Vac., MDV , IM, 0.5 mL (Fluzone) 07/06/2015,07/04/2014,08/06/2013,06/27 Seasonal Influenza, PF, 6 M & above, IM , (FluLaval or Fluzone) 08/02/2023,07/13/2022,07/13/2021,06/27,09/18/2019,08/01/2018 Seasonal Influenza, Quadriva lent, No Preserve, IM 07/07/2017,07/19/2016 Seasonal Influenza, Trivalen t, (IIV3), PF, (Fluzone) 08/07/2024 TD, Preservative Free 05/05/2018 TDAP, Age 7 and older, IM (Adacel) 05/24/2011, Yellow Fever Vaccine, Live (YF-Vax) 05/05/2018 Zoster Vaccine Recombinant (Shingrix) 03/03/2020 ,12/29/2019 02/29/2020 documented as of this encounter Social History Tobacco Use Types Packs/Day Years Used Date Smoking Tobacco: Never Smokeless Tobacco: Never Alcohol Use Standard Drinks/Week Comments Yes 0 (1 standard drink = 0.6 oz pur e alcohol) rare PHQ-2 Answer Date Recorded PHQ Adult Total Score 25 03/31/2023 Hunger Vital Sign Answer Date Recorded Within the past 12 months, y ou worried that your food would run out before you got the money to buy more. Sometimes true Within the past 12 months, t he food you bought just didn't last and you didn't have money to get more. Sometimes true Childcare Answer Date Recorded Do you feel overwhelmed with taking care of a child, family member or friend? Yes 05/10/2024 Does your family need help f inding childcare? (Household - for ages 0-17 years) Not on file 05/10/2024 Clothing Answer Date Recorded Have you been unable to get clothing when it was really needed? No 05/10/2024 Is your family able to get c lothes or diapers when needed? (Household - for ages 0-17 years) Not on file 05/10/2024 Personal Safety Answer Date Recorded Do you feel unsafe or have concerns for your saf ety? No 05/10/2024 Do you have concerns for you r family's safety? (Household - for ages 0-17 years) Not on file 05/10/2024 Utilities Answer Date Recorded Do you have trouble paying y our heating, water, or electric bill? Yes 05/10/2024 Is your family able to pay t he heat, water, or electric bill? (Household - for ages 0-17 years) Not on file 05/10/2024 Does your family have access to good internet? (Household - for ages 0-17 years) Not on file 05/10/2024 Employment Status Answer Date Recorded Are you unemployed or without regular income? Ye s 05/10/2024 Does the household have a re gular source of income? (Household - for ages 0-17 years) Not on file 05/10/2024 Social Connections Answer Date Recorded How often do you feel lonely or isolated from th ose around you? Often 05/10/2024 Financial Resource Strain Answer Date R ecorded Do you have any trouble payi ng for your medications, or do you think you might in the future? No 05/10/2024 Does your family have troubl e paying for medicine? (Household - for ages 0-17 years) Not on file 05/10/2024 Transportation Needs Answer Date Record ed Do you have trouble getting a ride to medical visits or work? (Adult - for ages 18 years and over) Not on file 05/10/2024 Does your family have a hard time getting a ride to doctors visits? (Household - for ages 0-17 years) Not on file 05/10/2024 Has lack of transportation k ept you from medical appointments, meetings, work, or from getting things needed for daily living? Check all that apply. No 05/10/2024 Do you (or your family) have trouble finding or paying for a ride (transportation)? (Household - for ages 0-17 years) Not on file 05/10/2024 Housing Stability Answer Date Recorded Do you currently live in a s helter or have no steady place to sleep at night? No 05/10/2024 Do you think you are at risk of becoming homeless? (Adult - for ages 18 years and over) Not on file 05/10/2024 Does your family worry about paying for your home or becoming homeless? (Household - for ages 0-17 years) Not on file 0 05/10/2024 Are you homeless or worried that you might be in the future? No 05/10/2024 Are you (or your family) dayanna eless or worried that you might be in the future? (Household - for ages 0-17 years) Not on file Food Insecurity Answer Date Recorded Do you need food for this week? No 05/10/2024 Are you able to get enough f ood for your family? (Household - for ages 0-17 years) Not on file 05/10/2024 Does your family need food t his week? (Household - for ages 0-17 years) Not on file 05/10/2024 Do you always have enough fo od for your family? (Household - for ages 0-17 years) Not on file 05/10/2024 Comments No Sex and Gender Information Value Date Recorded Sex Assigned at Female 12/29/2019 8:19 AM EST Legal Sex Female 6:59 AM EST Gender Identity Female 12/29/2019 8:19 AM EST Sexual Orientation Straight 12/29/2019 8: 19 AM EST Occupation Industry Job Start Date Job End Date at home Not on file Not on file Not on file documented as of this encounter Miscellaneous Notes * Telephone Encounter - Darleen Gasca LPN - 11/22/2024 11:36 AM EST Both scanned in under patient files. * Telephone Encounter - Darleen Gasca LPN - 11/22/2024 11:36 AM EST Lisdexamfetamine 70mg approval 11/19/24-11/19/25 * Telephone Encounter - Darleen Gasca LPN - 11/22/2024 11:35 AM EST Atomoxetine 40mg approved 11/19/24-11/19/25 * Telephone Encounter - Darleen Gasca LPN - 11/17/2024 11:59 AM EST Duplication of therapy prior auth sent for Vyvanse 70mg and Strattera 40mg. Faxed documents to [facility] Medicaid. documented in this encounter Plan of Treatment Upcoming Encounters Date Type Department Care Team (Late st Contact Info) Description 11/22/2024 4:00 PM EST Telemedicine Psychiatry Hollie Cui [address] [place] [phone] Joycelyn Shaver MD [address] [place] [phone] 11/23/2024 2:20 PM EST Office Visit [facility] [address] [place] [address] Joycelyn Nair, DO [address] [place] [address] 11/25/2024 3:15 PM EST Office Visit Gynecology/Obstetrics [facility] [address] [place] [address] Sharan Mello MD [address] [place] [address] 01/25/2025 10:40 AM EDT Office Visit [facility] [address] [place] [address] Joycelyn Nair, DO [address] [place] [address] 02/14/2025 1:00 PM EDT Office Visit Orthopaedics [facility] [address] [place] [phone] Omi Lindsay MD [address] [place] [address] Scheduled Procedures Name Priority Associated Diagnoses Date/Ti me COLONOSCOPY FLEXIBLE PROXIMAL DIAGNOSTIC Recall Screen for colon cancer Health Maintenance Due Date Last Done Comments Cologuard 2014 Fecal Occult Blood Test 2014 Sigmoidoscopy 2014 Pneumococcal Vaccine: 50+ Years (1 of 1 - PCV) 2019 Depression Monitoring 03/31/2024 03/31/2023 COVID-19 Vaccine ( season) 2024 08/02/2023, 07/18/2022, 02/04/2022, Additional history exists Mammogram 02/16/2025 02/17/2024, 10/27, 10/22/2021, Additional history exists PAP SMEAR-EVERY 3 YRS,AGES 18-100 08/23/2025 08/23/2022, 07/27/2021, 06/30/2018, Additional history exists Diabetes Screening 06/10/2027 06/10/2024, 0 01/19/2023, 01/09/2023, Additional history exists Lipid Panel 01/10/2028 01/09/2023, 09/0 10/2020, 05/11/2020, Additional history exists DTap/Tdap Vaccines (4 - Td or Tdap) 05/05/2028 05/05/2018, 05/24/2011, 11/12/2005 Colonoscopy 05/17/2030 05/17/2020, 05/17/2020 Colorectal Cancer Screening 05/17/2030 MENINGOCOCCAL (MENACTRA/MENVEO) Aged Out 03/04/2019 No longer eligible based on patient's age to complete this topic Hepatitis B Vaccine Completed 10/08/2019, 04/07/2019, 03/10/2019 Zoster Vaccines Completed 03/03/2020, 12/29/2019 Influenza Vaccine (FLU shot) Completed 09/2024, 08/02/2023, 07/13/2022, Additional history exists HPV (Gardasil) Vaccine Aged Out No lo nger eligible based on patient's age to complete this topic documented as of this encounter Medical Devices Not on filedocumented as of this encounter Care Teams Manager Media Relationship Specialty Start Date End Date Joycelyn Nair DO [address] [place] [address] PCP - General Family Medicine 11/15/24 documented as of this encounter
--- OUTSIDE RECORDS SUMMARY | 2024-11-27 04:15 | External Medical Summary | Summary of Care ---
Author Name Unknown Organization [facility] Address [address] [facility] [place] [address] Phone [phone] Care Team Providers Care Custom Feed Mill Operator Helper Name Role Phone Brian Nair DO Primary Care Provider Reason for Visit * Reason Comments eRx-Medication Refill Encounter Details Date Type Department Care Team (Late st Contact Info) Description 11/19/2024 Refill Family Practice [facility] [address] [place] [address] Brian Nair DO [address] [place] [address] Tendinitis of right rotator cuff Allergies Active Allergy Reactions Criticality Noted Date Comments Diphenhydramine 02/20/2022 Causes anxiety Hydroxyzine High 01/20/2023 Other Reaction(s): Anxiety documented as of this encounter (statuses as of 11/19/2024) Medications PREVIDENT 5000 BOOSTER PLUS 1.1 % [...] TWICE DAILY WITH MEALS 180 Tablet 1 11/19/19 25 Active Naproxen 500 MG Oral Tablet (Naprosyn)Gina cations:Tendin itis of right rotator cuff TAKE 1 TABLET BY MOUTH TWICE DAILY WITH MEALS 180 Tablet 1 05/28/20 24 025 Discontinued documented as of this encounter (statuses as of 11/19/2024) Active Problems Problem Noted Date Diagnosed Date Major depressive disorder, recurrent episode, mo derate 01/20/2024 Marital problem involving divorce 01/20/2024 Pain of finger of left hand 07/28/2023 Carpal tunnel syndrome, bilateral 01/22/2023 PTSD (post-traumatic stress disorder) 10/15/2022 HUNT (dyspnea on exertion) 06/28/2021 Food insecurity 06/04/2021 Overview: Per [facility] Protocol Major depressive disorder, recurrent, unspecifie d 01/10/2021 Other social stressor 01/10/2021 Recurrent major depressive disorder, in full rem ission 12/11/2017 documented as of this encounter (statuses as of 11/19/2024) Resolved Problems Problem Noted Date Diagnosed Date Resolved Date Screening-pulmonary TB 09/04/202106/11 Screening for STD (sexually transmitted disease) 07/27/2021 06/11/2024 History of Lyme disease 04/15/201604/26 documented as of this encounter (statuses as of 11/19/2024) Immunizations Name Administration Dates Next Due COVID-19 mRNA, LNP-s, No Pre serve, 2-Dose Series (Moderna) 02/04/2022,07/16/2021 COVID-19 mRNA, LNP-s, No Pre serve, 2-Dose Series (Pfizer) 11/29/2020,11/08/2020 COVID-19, MRNA-LNP, PF, 30 M CG/0.3 mL, 12 YRS AND ABOVE, IM (PFIZER-Comirnaty) 08/02/2023 Covid-19, Mrna, Lnp-s, Pf, B ivalent, [...] encounter Miscellaneous Notes * Telephone Encounter - Lucy Reveles [facility] - 11/19/2024 10:06 AM ESTSigned Prescriptions: Disp Refills Naproxen 500 MG Oral Tablet (Naprosyn) 180 Ta*1 Sig: TAKE 1 TABLET BY MOUTH TWICE DAILY WITH MEALSAuthorizing Provider: BRIAN NAIR User: LUCY REVELES documented in this encounter Plan of Treatment Upcoming Encounters Date Type Department Care Team (Late st Contact Info) Description 11/19/2024 1:20 PM EST Office Visit [facility] [address] [place] [address] Yovana Amador CRNP [address] [place] [address] 11/22/2024 4:00 PM EST Telemedicine Psychiatry [place] [facility] [address] [phone] Brian Shaver MD [address] [place] [address] 01/25/2025 10:40 AM EDT Office Visit [facility] [address] [place] [address] Brian Nair DO [address] [place] [address] 02/14/2025 1:00 PM EDT Office Visit Orthopaedics [facility] [address] [place] [phone] Omi Lindsay MD [address] [place] [phone] Scheduled Procedures Name Priority Associated Diagnoses [...] Not on filedocumented as of this encounter Visit Diagnoses Diagnosis Tendinitis of right rotator cuff Disorders of bursae and tendons in shoulder region, unspecified documented in this encounter Care Teams Custom Feed Mill Operator Helper Relationship Specialty Start Date End Date Brian Niar DO [address] [place] [address] PCP - General Family Medicine 11/15/24 documented as of this encounter
--- OUTSIDE RECORDS SUMMARY | 2024-11-27 04:15 | External Medical Summary | Summary of Care ---
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 BRUSH THOROUGHLY FOR 2 MINUTES. NO FOOD OR DRINK FOR 30 MINUTES. 3 8 Active Spacer/Aero-Hol ding Chambers Device Use with inhaler. 1 Each 1 Active Albuterol Sulfate HFA 108 (90 Base) MCG/ACT Inhalation Aerosol Solution Inhale 2 Puffs by mouth every 6 hours as needed for Shortness of Breath. 18 g 4 Active Atenolol 25 MG Oral Tablet (Tenormin)Indic ations:HTN, goal below 140/90 Take 1 tablet by mouth twice daily 60 Tablet 5 4 Active Lisdexamfetamin e Dimesylate 70 MG Oral Capsule (Vyvanse) Take 1 Capsule by mouth in the morning. Do not start before November 11, 2024. 30 Capsule 5 Active Benzonatate 100 MG Oral Capsule Take 1 Capsule by mouth 3 times a day as needed for Cough. 30 Capsule 5 Active Atomoxetine HCl 40 MG Oral Capsule (Strattera) Take 1 Capsule by mouth in the morning. 40 Capsule 1 5 Active Prazosin HCl 5 MG Oral Capsule (Minipress) Take 1 Capsule by mouth every night at bedtime. 30 Capsule 2 5 Active Naproxen 500 MG Oral Tablet (Naprosyn)Indic ations:Tendinit is of right rotator cuff TAKE 1 TABLET BY MOUTH TWICE DAILY WITH MEALS 180 Tablet 1 5 Active Additional Information Patient not taking.Reported on 11/23/2024 FLUoxetine HCl 40 MG Oral Capsule (PROzac) Take 1 Capsule by mouth in the morning. 30 Capsule 2 5 Active Gabapentin 300 MG Oral Capsule (Neurontin) Take 1 Capsule by mouth in the morning and 1 Capsule at noon and 1 Capsule in the evening and 1 Capsule before bedtime. Active documented as of this encounter (statuses as of 11/26/2024) Active Problems Problem Noted Date Diagnosed Date Major depressive disorder, recurrent episode, mo derate 01/20/2024 Marital problem involving divorce 01/20/2024 Pain of finger of left hand 07/28/2023 Carpal tunnel syndrome, bilateral 01/22/2023 PTSD (post-traumatic stress disorder) 10/15/2022 HUNT (dyspnea on exertion) 06/28/2021 Food insecurity 06/04/2021 Overview: Per [facility] Protocol Major depressive disorder, recurrent, unspecifie d 01/10/2021 Other social stressor 01/10/2021 Recurrent major depressive disorder, in full rem ission 12/11/2017 documented as of this encounter (statuses as of 11/26/2024) Resolved Problems Problem Noted Date Diagnosed Date Resolved Date Screening-pulmonary TB 09/04/202106/11 Screening for STD (sexually transmitted disease) 07/27/2021 06/11/2024 History of Lyme disease 04/15/201604/26 documented as of this encounter (statuses as of 11/26/2024) Immunizations Name Administration Dates Next Due COVID-19 mRNA, LNP-s, No Pre serve, 2-Dose Series (Moderna) 02/04/2022,07/16/2021 COVID-19 mRNA, LNP-s, No Pre serve, 2-Dose Series (Pfizer) 11/29/2020,11/08/2020 COVID-19, MRNA-LNP, PF, 30 M CG/0.3 mL, 12 YRS AND ABOVE, IM (PFIZER-Comirnaty) 08/02/2023 COVID-19, MRNA-LNP, PF, 50 M CG/0.5 mL, 12 YRS AND ABOVE, IM (MODERNA-Spikevax) 11/23/2024 Covid-19, Mrna, Lnp-s, Pf, B ivalent, 30 Mcg, IM, 12 yrs and above (Pfizer) 07/18/2022 HEP A - Hepatitis A (Adult > 18 yrs) 06/20/2015, 07/04/2014 Hepatitis B, 20+ yrs 10/08/2019,04/07/2019,03/1009/07/2019 IPV - Polio Virus Vaccine (Inact) 05/05/2018 MMR - Measles/Mumps/Rubella Vaccine 03/04/2019,0 02/03/2013 Meningococcal MCV4O Conjugat e Vaccine (Menveo) 03/04/2019 PPD 09/04/2021,12/29/2019,12/20/2019 12/31/2019 Pneumococcal Conjugate Vacci ne, 20-valent ([id number]) 11/23/2024 Seasonal Influenza Vac., MDV , IM, 0.5 [...] Answer Date Recorded PHQ Adult Total Score 24 11/23/2024 Hunger Vital Sign Answer Date Recorded Within [...] on file documented as of this encounter Last Filed Vital Signs Vital Sign Reading Time Taken Comments Blood Pressure 108/68 11/25/2024 3:21 PM EST Pulse - - Temperature - - Respiratory Rate - - Oxygen Saturation - - Inhaled Oxygen Concentration - - Weight 68.9 kg (152 lb) 11/25/2024 3:21 PM EST Height 157.5 cm (5' 2") 11/25/2024 3:21 PM EST Body Mass Index 27.8 11/25/2024 3:21 PM EST documented in this encounter Progress Notes * Sharan Mello MD - 11/25/2024 3:49 PM EST Patient Name: Jennifer Lanier Patient CC: Follow up from the ER. Context: (HPI) 54 year old seen in the ER on November 19, 2024 for alcohol intoxication. Patient was worked up and is part of her workup beta HCG was obtained. Beta HCG was 5mIU/ml patient reports a last menstrual period was 2019 she had not had any menses since postmenopausal bleeding. Upondischarge patient saw her PCP on November 23. Repeat HCG done through the [facility] lab was 4.5, ie less than 7. Uterine HCG is negative. Patient denies any pelvic pain in the discomfort in the vagina abdomen. She denies vaginal bleeding,nausea, vomiting, pelvic or abdominal pain. She is here with her boyfriendshe is alert awake and does not appear intoxicated. Location: Quality: Severity: Duration: Worsening/improving sympt: Pain level/ Scale: Timing: Associated symptoms: Past Medical Hx: Past Medical History: Diagnosis Date Carpal tunnel syndrome, bilateral 01/22/2023 Food insecurity 06/04/2021 Per [facility] Protocol History of Lyme disease 04/15/2016 Other social stressor 01/10/2021 PTSD (post-traumatic stress disorder) Recurrent major depressive disorder, in full remission ([facility]) 12/11/2017 Past Surgical Hx: Past Surgical History: Procedure Laterality Date COLONOSCOPY, DIAGNOSTIC (RECTUM) 05/17/2020 normal, repeat 5 yrs / COLONOSCOPY FLEXIBLE PROXIMAL DIAGNOSTIC performed by Ximena Vera MD at ENDOSCOPY [facility] ENLARGEMENT OF BREAST W/IMPLANT 2017 MISCELLANEOUS ORDER ([facility] ONLY) Left 06/28/2015 osteotomy L foot TMT joints WRIST ARTHROSCOPY/RELEASE LIGAMENT Right 08/22/2023 WRIST ENDOSCOPY SURGERY RELEASE TRANSVERSE CARPAL LIGAMENT performed by Carlos Sandoval MD at OR [facility] WRIST ARTHROSCOPY/RELEASE LIGAMENT Left 09/03/2023 WRIST ENDOSCOPY SURGERY RELEASE TRANSVERSE CARPAL LIGAMENT performed by Carlos Sandoval MD at [facility] Social Hx: Social History Socioeconomic History Marital status: Spouse name: Bipin Number of children: 3 Occupational History Occupation: at home Tobacco Use Smoking status: Never Smokeless tobacco: Never Vaping Use Vaping status: Never Used Substance and Sexual Activity Alcohol use: Yes Comment: rare Drug use: Yes Types: Marijuana Comment: medical marijuana Social Needs Financial Resource Strain: Low Risk (05/10/2024) Financial Resource Strain Do you have any trouble paying for your medications, or do you think you might in the future? (Adult - for ages 18 years and over): No Food Insecurity: No Food Insecurity (05/10/2024) Food Insecurity Do you need food for this week? (Adult - for ages 18 years and over): No Recent Concern: Food Insecurity - Food Insecurity Present (05/10/2024) Hunger Vital Sign Worried About Running Out of Food in the Last Year: Sometimes true Ran Out of Food in the Last Year: Sometimes true Transportation Needs: No Transportation Needs (05/10/2024) Transportation Needs Has lack of transportation kept you from medical appointments, meetings, work, or from getting things needed for daily living? Check all that apply. (Adult - for ages 18 years and over): No Social Connections: Socially Isolated (05/10/2024) Social Connections How often do you feel lonely or isolated from those around you? (Adult - for ages 18 years and over): Often Housing Stability: Low Risk (05/10/2024) Housing Stability Do you currently live in a half-way or have no steady place to sleep at night? (Adult - for ages 18 years and over): No Are you homeless or worried that you might be in the future? (Adult - for ages 18 years and over): No Allergy: Review of patient's allergies indicates: Allergen Reactions Hydroxyzine Other Reaction(s): Anxiety Diphenhydramine Causes anxiety Family HX: Family History Problem Relation Name Age of Onset Heart Disorder Mother Stroke Mother age 70 Diabetes Mother Hypertension Mother COPD Mother Parkinsonism Father Heart Disorder Brother (Half) Parkinsonism Brother Dementia Brother Dementia Brother ROS: REVIEW OF SYSTEMS CONSTITUTIONAL ROS: No change in weight, No weakness, No fatigue and No fevers, sweats, or chills PULMONARY ROS: No cough, sputum, or hemoptysis, No wheezing, No shortness or breath and No recent change in breathing CARDIOVASCULAR ROS: No chest pain, No shortness of breath, No dyspnea on exertion, No orthopnea, Noparoxysmal nocturnal dyspnea, No edema, No palpitations and No syncope BREAST ROS: No new breast lumps or masses, No severe breast pain, No nipple discharge, No recent change in shape/color and Performs self breast exam ENDOCRINE ROS; No change in wt gain, hair loss or bowel habits, malaise or fatigue. No polyuria, polyphagia polydipsia GASTROINTESTINAL ROS: No abdominal pain, No change in bowel habits, No significant heartburn, No significant change in appetite, No nausea, vomiting, diarrhea, or constipation, No hematemesis, No blood in stools or black tarry stools, No abdominal bloating or early satiety and No dysphagia GENITO-URINARY FEMALE ROS: No STDs, No dysuria, No frequency, No incontinence, No urgency and No vaginal discharge and + for irreg menses. ALL OTHERS REVIEWED AND ALL OTHERS NEGATIVE LABS: PHYSICAL EXAMINATION Well developed. Well nourishes white female in no acute distress Vital signs BP 108/68 | Ht 1.575 m (5' 2") | Wt 68.9 kg (152 lb) | LMP 05/14/2020 | BMI 27.80 kg/m | BSA 1.74m A/P Elevated serum hCG (Primary) Follow up from an ER visit on 1 02/13/2025. Patient was found intoxicated and brought to the ER as part of her workup beta HCG was elevated. Upon discharge patient has seen PCP and repeat HCG is 4.5 which is less than 7 and technically negative. Uterine HCG was negative. Discussed finding with the patient and spouse reviewed some other causes of elevated patient HCG including choriocarcinoma. Plan chest x-ray is ordered. Pelvic ultrasound is ordered Repeat HCG in 1 weeks - URINE SCREEN, POINT OF CARE (ENTER/EDIT) - XR CHEST 2 VIEWS; Future; Expected date: 11/25/2024 - US PELVIS TRANS-VAGINAL NON-OB; Future; Expected date: 11/25/2024 I spent a total of 30-39 minutes (exact time 33 mins) on the date of service in preparation, delivery, and documentation of the care provided to Jennifer Lanier excluding any time spent in the performance of separately billed services or time spent by another provider/QHP. documented in this encounter Nursing Notes * Sandra Taylor LPN - 11/25/2024 3:19 PM EST Pt is here for er + preg test LMP 08/2020 documented in this encounter Plan of Treatment Upcoming Encounters Date Type Department Care Team (Late st Contact Info) Description 11/26/2024 9:45 AM EST Imaging Radiology [facility] [address] [place] [phone] 11/30/2024 1:30 PM EST Telemedicine Psychiatry [place] [facility] [address] [place] [address] Joycelyn Shaver MD [address] [place] [address] 01/25/2025 10:40 AM EDT Office Visit Family Practice [facility] [address] [place] [address] Joycelyn Nair DO [address] [place] [address] 02/14/2025 1:00 PM EDT Office Visit Orthopaedics [facility] [address] [place] [address] Omi Lindsay MD [address] [place] [address] Scheduled Orders Name Type Priority Associated Diagnoses Orde r Schedule US PELVIS TRANS-VAGINAL NON-OB Medical Imaging Routine Elevated serum hCG Expected: 11/25/2024, Expires: 12/24/2025 BETA-HCG, QUANTITATIVE Lab Routine Elevated serum hCG Expected: 12/02/2024, Expires: 11/25/2025 Scheduled Procedures Name Priority Associated Diagnoses Date/Ti me COLONOSCOPY FLEXIBLE PROXIMAL DIAGNOSTIC Recall Screen for colon cancer Health Maintenance Due Date Last Done Comments Cologuard 2014 Fecal Occult Blood Test 2014 Sigmoidoscopy 2014 Mammogram 02/16/2025 02/17/2024, 10/27, 10/22/2021, Additional history exists PAP SMEAR-EVERY 3 YRS,AGES 18-100 08/23/2025 08/23/2022, 07/27/2021, 06/30/2018, Additional history exists Depression Monitoring 11/23/2025 11/23/2024 Diabetes Screening 06/10/2027 06/10/2024, 0 01/19/2023, 01/09/2023, Additional history exists DTap/Tdap Vaccines (4 - Td or Tdap) 05/05/2028 05/05/2018, 05/24/2011, 11/12/2005 Lipid Panel 11/23/2029 11/23/2024, 12/25, 06/27/2021, Additional history exists Colonoscopy 05/17/2030 05/17/2020, 05/17/2020 Colorectal Cancer Screening 05/17/2030 MENINGOCOCCAL (MENACTRA/MENVEO) Aged Out 03/04/2019 No longer eligible based on patient's age to complete this topic Hepatitis B Vaccine Completed 10/08/2019, 04/07/2019, 03/10/2019 Zoster Vaccines Completed 03/03/2020, 12/29/2019 Influenza Vaccine (FLU shot) Completed 09/2024, 08/02/2023, 07/13/2022, Additional history exists COVID-19 Vaccine Completed 11/23/2024, 04/2023, 07/18/2022, Additional history exists Pneumococcal Vaccine: 50+ Years Completed 11/23/2024 HPV (Gardasil) Vaccine Aged Out No lo nger eligible based on patient's age to complete this topic documented as of this encounter Medical Devices Not on filedocumented as of this encounter Procedures Procedure Name Priority Date/Time Associated Diagnosis Comments URINE SCREEN, POINT OF CARE (ENTER/EDIT) Routine 11/25/2024 Elevated serum hCG documented in this encounter Results * BETA-HCG, QUANTITATIVE (11/25/2024 4:07 PM EST) Beta-HCG, Quantitative 4.1 <=7.0 mIU/mL 11/25/2024 11:27 PM EST [facility] Blood Venous blood specimen / Unknown Venipuncture / Unknown 11/25/2024 4:07 PM EST 11/25/2024 4:07 PM EST Narrative LAB[facility]ATORY [facility] - 11/25/2024 11:27 PM EST hCG can serve as a screening assay for . However, early may not give a positive hCG test result. In addition, some non- women may have a hCG result slightly higher than the reference limit. Careful interpretation of the hCG with clinical history is required to determine whether the patient may be . Postmenopausal women have higher hCG than premenopausal women. The reference interval for non- premenopausal women is <= 1 mIU/mL, and for postmenopausal women is <= 7 mIU/mL. us Sharan Mello MD LAB BLOOD ORDERABLES Final Resul t LAB[facility]ATORY [facility] [address] [place] [address] * XR CHEST 2 VIEWS (11/25/2024 4:01 PM EST) Anatomical Region Laterality Modality Chest Computed Radiogr aphy 11/25/2024 4:09 PM EST Impressions 11/25/2024 4:07 PM EST IMPRESSION No acute or suspicious finding. Narrative 11/25/2024 4:07 PM EST EXAM XR CHEST 2 VIEWS-11/25/2024 4:01 pm HISTORY pt has +ve BHCG please r/o choriocarcinoma COMPARISON Chest radiograph 06/15/2021. TECHNIQUE PA and lateral views of the chest are examined. FINDINGS The lungs are clear. There is no pleural effusion. The pulmonary vasculature and cardiomediastinal silhouette are within normal limits. No acute osseous finding. Procedure Note Paco Marx MD - 11/25/2024 EXAM XR CHEST 2 VIEWS-11/25/2024 4:01 pm HISTORY pt has +ve BHCG please r/o choriocarcinoma COMPARISON Chest radiograph 06/15/2021. TECHNIQUE PA and lateral views of the chest are examined. FINDINGS The lungs are clear. There is no pleural effusion. The pulmonaryvasculature and cardiomediastinal silhouette are within normal limits. Noacute osseous finding. IMPRESSION IMPRESSION No acute or suspicious finding. us Sharan Mello MD RADIOLOGY (RAD GENERAL) Final Re sult * URINE SCREEN, POINT OF CARE (ENTER/EDIT) (11/25/2024) hCG Beta, Urine Negative Negative Procedural Control Valid? Yes Lot Number [id number] Expiration Date 04/20/26 Urine 11/25/2024 Sharan Mello MD LAB POINT OF CARE TEST ENTER/COLBY T ORDERABLES Final Result documented in this encounter Visit Diagnoses Diagnosis Elevated serum hCG- Primary Unspecified endocrine disorder Elevated serum hCG Unspecified endocrine disorder documented in this encounter Care Teams Pot Press Operator Relationship Specialty Start Date End Date Joycelyn Nair DO [address] [facility] [place] [address] PCP - General Family Medicine 11/15/24 documented as of this encounter
--- OUTSIDE RECORDS SUMMARY | 2024-11-27 04:15 | External Medical Summary ---
Author Name Unknown Address Unknown Organization K01:LABORATORY [place] [address] [address] [facility] [facility] [address] Laboratory Report Ordering Provider Test Date Status BRIANYIMI 11/23/2024 15:09:27 Final hCG can serve as a screening assay [...] for postmenopausal women is <= 7 mIU/mL. Observation Date Value Abnormality Reference (Units ) Status Choriogonadotropin.intact +Beta subunit [Units/volume] in Serum or Plasma 11/23/2024 15:09:27 4.7 <=7.0 (mIU/mL) Final Performing Location LABORATORY [facility] - [facility] [place] [place]. [facility] [address]
--- OUTSIDE RECORDS SUMMARY | 2024-11-27 04:15 | External Medical Summary ---
Author Name Unknown Address Unknown Organization [id number]:[facility]ATORY [facility] - [address] [facility] [address] Laboratory Report Ordering Provider Test Date Status MIGUE TORRESHOUSER 11/23/2024 15:09:27 Final Observation Date Value Abnormality Reference (Units ) Status Triglyceride 11/23/2024 15:09:27 104 <=174 ( mg/dL) Final Triglyceride Reference Range s (mg/dL):
<150 Acceptable
150-174 Borderline high
175-499 High
>=500 Very high Cholesterol 11/23/2024 15:09:27 269 Above high normal <200 (mg/dL) Final Total Cholesterol Reference Ranges (mg/dL):
<200 Desirable
200-239 Borderline high
>=240 High HDL 11/23/2024 15:09:27 72 >49 (mg/dL ) Final HDL Cholesterol Reference Ra nges (mg/dL):
>=60 High (Desirable)
<50 Low (Undesirable) For Females
<40 Low (Undesirable) For Males NON-HDL CHOLESTEROL 11/23/2024 15:09:27 197 Above high normal <=159 (mg/dL) Final Non-HDL Cholesterol Referenc e Range (mg/dL):
<100 Target level for high risk ASCVD patient
<130 Optimal for general population
130-159 Near optimal for general population
160-189 Borderline High
190-219 High
>=220 Very High LDL, (calculated) 11/23/2024 15:09:27 176 Above high n ormal <=129 (mg/dL) Final LDL Cholesterol Reference Ra nges (mg/dL):
<70 Target level for high risk ASCVD patient
<100 Optimal for general population
100-129 Near optimal for general population
130-159 Borderline high
160-189 High
>=190 Very high Performing Location LAB[facility]ATORY [facility] - [address] [facility] [address]
--- OUTSIDE RECORDS SUMMARY | 2024-11-27 04:15 | External Medical Summary | Summary of Care ---
Author Name Unknown Organization [facility] Address [address] [facility] [place] [address] Phone [phone] Care Team Providers Care Transmitter Chief Name Role Phone Joycelyn Nair DO Primary Care Provider [phone] Reason for Visit * Reason Onset Date Comments Pre Cert/Prior Auth 11/17/2024 DUPLICATION OF THERAPY Encounter Details Date Type Department Care Team (Late st Contact Info) Description 11/17/2024 Telephone Psychiatry Pierre Cui [address] [place] [address] Joycelyn Shaver MD [address] [place] [address] Pre Cert/Prior Auth (DUPLICATION OF THERAPY) Allergies Active Allergy Reactions Criticality Noted Date Comments Diphenhydramine 02/20/2022 Causes anxiety Hydroxyzine High 01/20/2023 Other Reaction(s): Anxiety documented as of this encounter (statuses as of 11/18/2024) Medications PREVIDENT 5000 BOOSTER PLUS 1.1 % [...] Shortness of Breath. 18 g 4 Active Naproxen 500 MG Oral Tablet (Naprosyn)Indic ations:Tendinit is of right rotator cuff TAKE 1 TABLET BY MOUTH TWICE DAILY WITH MEALS 180 Tablet 1 4 Active Triamcinolone Acetonide 0.1 % External Cream (Aristocort)Ind ications:Skin neoplasm Apply twice daily to back up to 2 weeks, then taper to weekends only Fri-Fri as needed 80 g 1 4 Active LORazepam 2 MG Oral Tablet (Ativan) Take 1 tablet only for severe anxiety. Can give second dosage in 4 hours if necessary for severe anxiety/panic. 14 Tablet 4 Active Atenolol 25 MG Oral Tablet (Tenormin)Indic ations:HTN, goal below 140/90 Take 1 tablet by mouth twice daily 60 Tablet 5 4 Active Lisdexamfetamin e Dimesylate 70 MG Oral Capsule (Vyvanse) Take 1 Capsule by mouth in the morning. Do not start before November 11, 2024. 30 Capsule 5 Active predniSONE 20 MG Oral Tablet (Deltasone) Take 3 tabs for 3 days, 2 tabs for 3 days, 1 tab for 3 days, 1/2 tab for 3 days 20 Tablet 5 Active Benzonatate 100 MG Oral Capsule [...] at bedtime. 30 Capsule 2 5 Active documented as of this encounter (statuses as of 11/18/2024) Active Problems Problem Noted Date Diagnosed Date Major depressive disorder, recurrent episode, mo derate 01/20/2024 Marital problem involving divorce 01/20/2024 Pain of finger of left hand 07/28/2023 Carpal tunnel syndrome, bilateral 01/22/2023 PTSD (post-traumatic stress disorder) 10/15/2022 HUNT (dyspnea on exertion) 06/28/2021 Food insecurity 06/04/2021 Overview: Per [facility] Protocol Major depressive disorder, recurrent, unspecifie d 01/10/2021 Other social stressor 01/10/2021 Recurrent major depressive disorder, in full rem ission 12/11/2017 documented as of this encounter (statuses as of 11/18/2024) Resolved Problems Problem Noted Date Diagnosed Date Resolved Date Screening-pulmonary TB 09/04/202106/11 Screening for STD (sexually transmitted disease) 07/27/2021 06/11/2024 History of Lyme disease 04/15/201604/26 documented as of this encounter (statuses as of 11/18/2024) Immunizations Name Administration Dates Next Due COVID-19 mRNA, LNP-s, No Pre serve, 2-Dose Series (Moderna) 02/04/2022,07/16/2021 COVID-19 mRNA, LNP-s, No Pre serve, 2-Dose Series (Pfizer) 11/29/2020,11/08/2020 COVID-19, MRNA-LNP, PF, 30 M CG/0.3 mL, 12 YRS AND ABOVE, IM ([facility]) 08/02/2023 Covid-19, Mrna, Lnp-s, Pf, B ivalent, [...] 70mg and Strattera 40mg. Faxed documents to [facility] Medicaid. documented in this encounter Plan of Treatment Upcoming Encounters Date Type Department Care Team (Late st Contact Info) Description 11/22/2024 4:00 PM EST Telemedicine Psychiatry Pierre Cui [address] [place] [address] Joycelyn Shaver MD [address] [place] [phone] 01/25/2025 10:40 AM EDT Office Visit Family Practice [facility] [address] [place] [address] Joycelyn Nair DO [address] [place] [address] 02/14/2025 1:00 PM EDT Office Visit Orthopaedics [facility] [address] [place] [phone] Omi Lindsay MD [address] [place] [...] filedocumented as of this encounter Care Teams Transmitter Chief Relationship Specialty Start Date End Date Joycelyn Nair DO [address] [place] [id number] PCP - General Family Medicine 11/15/24 documented as of this encounter
--- OUTSIDE RECORDS SUMMARY | 2024-11-27 04:15 | External Medical Summary ---
Author Name Unknown Address Unknown Organization K01:[facility] [place] [address] [facility] [address] [facility] [address] Laboratory Report Ordering Provider Test Date Status DIONY DUFF 11/25/2024 16:07:24 Final hCG can serve as a screening [...] +Beta subunit [Units/volume] in Serum or Plasma 11/25/2024 16:07:24 4.1 <=7.0 (mIU/mL) Final Performing Location [facility] [place] [place] - [facility] Dewayne Moya [address]. [facility] [address]
--- OUTSIDE RECORDS SUMMARY | 2024-11-27 04:15 | External Medical Summary | Summary of Care ---
Author Name Unknown Organization [facility] Address [address] [facility] [address] Phone [phone] Care Team Providers Care Transmitter Engineer In Charge Name Role Phone Joycelyn Nair DO Primary Care Provider Reason for Visit * Reason Comments Outpatient Testing Encounter Details Date Type Department Care Team (Late st Contact Info) Description 11/25/2024 4:30 PM EST Laboratory Laboratory, [facility] [address] [facility] [place] [address] [facility] [address] [facility] [address] Elevated serum hCG Allergies Active Allergy Reactions Criticality Noted Date [...] exertion) 06/28/2021 Food insecurity 06/04/2021 Overview: Per [facility] Protocol Major depressive disorder, recurrent, unspecifie [...] 09/04/2021,12/29/2019,12/20/2019 12/31/2019 Pneumococcal Conjugate Vacci ne, 20-valent ([id number]) 11/23/2024 Seasonal Influenza Vac., MDV , IM, [...] on file documented as of this encounter Plan of Treatment Upcoming Encounters Date Type Department Care Team (Late st Contact Info) Description 11/26/2024 9:45 AM EST Imaging Radiology [facility] [address] [facility] [place] [phone] 11/30/2024 1:30 PM EST Telemedicine Psychiatry Hollie Cui [address] [place] [phone] Joycelyn Shaver MD [address] [phone] 01/25/2025 10:40 AM EDT Office Visit Family Practice [facility] [address] [place] [address] Joycelyn Nair DO [address] [place] [address] 02/14/2025 1:00 PM EDT Office Visit Orthopaedics [facility] [address] [place] [phone] Omi Lindsay MD [address] [place] [phone] Scheduled Procedures Name Priority Associated Diagnoses Date/Ti [...] Procedure Name Priority Date/Time Associated Diagnosis Comments BETA-HCG, QUANTITATIVE Routine 11/25/2024 4:07 PM EST Elevated serum hCG documented in this encounter Results * BETA-HCG, QUANTITATIVE (11/25/2024 4:07 PM EST) Beta-HCG, Quantitative 4.1 <=7.0 mIU/mL 11/25/2024 11:27 PM EST [facility] [place] Blood Venous blood specimen / Unknown Venipuncture / Unknown 11/25/2024 4:07 PM EST 11/25/2024 4:07 PM EST Narrative [facility] [place] - 11/25/2024 11:27 PM EST hCG can [...] LAB BLOOD ORDERABLES Final Resul t [facility] [place] [address] [facility] [place] [address] documented in this encounter Visit Diagnoses Diagnosis Elevated serum hCG Unspecified endocrine disorder documented in this encounter Care Teams Transmitter Engineer In Charge Relationship Specialty Start Date End Date Joycelyn Nair DO [address] [place] [address] PCP - General Family Medicine 11/15/24 documented as of this encounter
--- NOTE | 2024-11-27 07:20 | Electrocardiogram Report ---
Test Reason : Blood Pressure : */* mmHG Vent. Rate : 108 BPM Atrial Rate : 108 BPM P-R Int : 126 ms QRS Dur : 76 ms QT Int : 328 ms P-R-T Axes : 40 60 84 degrees QTcB Int : 439 ms Sinus tachycardia Poor R wave progression, consider anterior WA vs. lead placement vs. LVH Diffuse Nonspecific T wave abnormality Abnormal ECG When compared with ECG of 20-Jan-2024 12:16, No significant change Confirmed by Dixon Samaniego ([id number]) on 11/27/2024 7:20:48 AM Referred By: Confirmed By: Dixon Samaniego
[2024-11-27] MEDS ORDERED: MAGNESIUM HYDROXIDE SUSP 30 ML UDC PO PRN (08:26)
[2024-11-27] MEDS ORDERED: ALUMINUM/MAGNESIUM SUSP 30 ML UDC PO PRN (08:26)
[2024-11-27] MEDS ORDERED: SODIUM CHLORIDE 0.65% NA SOLN 45 ML (OCEAN) PRN (08:26)
[2024-11-27] MEDS ORDERED: BISMUTH SUBSALICYLATE 262 MG CHEW PO PRN (08:26)
[2024-11-27] MEDS ORDERED: hydrOXYzine HCl 25 MG TAB PO PRN ×2 (08:26)
[2024-11-27] MEDS: ACETAMINOPHEN 325 MG TAB PO PRN (08:39)
--- NOTE | 2024-11-27 10:10 | History & Physical ---
Date of Service November 27, 2024 Impression / Recommendations Impression JENNIFER NELSON is a 54-year-old woman who currently lives in [place] with her and son (age 13), has a history of PTSD, MDD, NAOMY with panic attacks, ADHD, and was admitted on 11/27/24 00:56 on a 201 voluntary commitment for worsening depression and anxiety with poor sleep. Diagnostically consistent with unspecified depression with differential including major depressive disorder vs borderline personality disorder vs acute exacerbation of PTSD in context of emotionally controlling and volatile relationship. Discussed medication treatment options in detail. Discussed risks, benefits and alternatives. Patient would like to start and consented to guanfacine for ADHD and off-label for impulsivity/anxiety and mirtazapine prn for insomnia/depression/anxiety. She also consents to increasing fluoxetine dose to target depression/anxiety/PTSD, continuing prior to admission medications of gabapentin, Strattera, Vyvanse (or suitable replacement of IR stimulant). Reviewed side effects including but not limited to: GI, CACERES with fluoxetine; low BP/syncope with guanfacine; elevated HR/low appetite/increased anxiety with Vyvanse/stimulant; dizziness/GI sx/CACERES with Strattera; dizziness/sedation/p otential for respiratory suppression with gabapentin; increased appetite/sedation with mirtazapine. MNPR to acute emotional distress and trauma history Overall I spent a total of 80 minutes for this admission including review of chart records, review of labwork, direct evaluation of the patient, counseling the patient, ordering medication, risk assessment, discussion with the psychiatric liason RN and documentation in the electronic health record. (1) Depressed mood: (2) Insomnia: (3) Crying: (4) Generalized anxiety disorder with panic attacks: (5) Marital conflict: (6) PTSD (post-traumatic stress disorder): (7) ADHD: Plan 11/27/2024: The patient was admitted to the [facility] ([facility] inpatient mental health unit) on q15 min checks (behavioral with suicide precautions) for safety. The patient will participate in group, recreational, and milieu therapies and will be offered additional individual and family sessions as clinically appropriate. -social work to investigate possible IOP vs increasing frequency of individual therapy to twice weekly and potential alternative options for couples counseling -provide information on [place] [facility] -Medications: * Increase fluoxetine to 60mg daily * d/c prazosin * start guanfacine 1mg HS * mirtazapine 15mg HS prn for insomnia -Questionnaires: * Angela BPD screen * Trauma symptom questionnaire * DIGNA scale Inventory Assets Strengths: supportive relationships, willing to get treatment Needs: safety and stabilization, medication adjustment, additional coping skills, increased outpatient services Suicide Risk Level Suicide Risk Level: High-Moderate (q15 min suicide checks) (significant depression with hopelessness but denies SI and feels safe in the hospital and able to ask for support if needed) Risk Factors Assessment Male: No Do You Have Access To A Gun?: No Health Problems: No Mental Health Diagnoses: Yes Substance Use Disorders: No Previous Attempt: Yes Family History of Suicide: Yes (mother with attempt) Previous Psychiatric Hospitalization: Yes Hopelessness: Yes Protective Factors Assessment : Yes Responsible for Young Children: Yes (13 yo son) Employed: No Good Rapport with Provider: Yes Psychiatric History Identifying Data JENNIFER NELSON is a 54-year-old woman who currently lives in [place] with her and son (age 13), has a history of PTSD, MDD, NAOMY with panic attacks, ADHD, and was admitted on 11/27/24 00:[address] [facility] voluntary commitment for worsening depression and anxiety with poor sleep. Chief Complaint "There's been a lot of conflict with my and can't seem to get anybody who can help". History of Present Illness Jennifer presents for psychiatric admission for worsening depression and anxiety with very poor sleep and difficulty functioning in the context of multiple psychosocial stressors including conflict with her and financial strain. She reports experiencing significant anxiety, which has been interfering with her sleep. She attempted to use a sleeping pill (cetirizine) but believes it ca used an adverse reaction. She has been sleeping approximately 4 hours per night due to anxiety with frequent awakenings. She endorses depressive symptoms including tearfulness, "lethargy", loss inte rest in things, very poor sleep (difficult falling and staying asleep, on average on about 4 hours per night), decreased motivation, helplessness, hopelessness, decreased energy, decreased appetite. She denies SI but notes "I wish for something to make all this suffering stop". She cries frequently and notes "it's exhausting". She also endorses symptoms of anxiety including generalized worries, shakiness, easily overwhelmed and panic attacks. Jennifer has a history of PTSD, C-PTSD, intermittent depression, chronic anxiety, and ADHD. She also believes she may have rejection-sensitive dysphoria (RSD). Jennifer describes ongoing marital conflict, which has led to isolation from her family. She reports her has been verbally aggressive towards her and her family members. She attempted couples counseling but found it ineffective. She feels unsupported and states her blames her for their relationship issues. She expresses feeling confused and trapped in the relationship, partly due to financial constraints. She expresses frustration with their communication pattern and lack of helpfulness of recent attempt at couples counseling. She often feels unheard and after the couples counselor gave some negative feedback she felt unable to return. She notes "I've become so sensitive because I feel like nobody is in my corner". Describes a lot of difficulty in her relationship including her lying and wanting him to "take some responsibility". She identifies her main symptom targets as "I need help for my hypersensitivity" and has read about guanfacine and is potentially interested in trying this. She notes "I'm not crazy in a vacuum, I was really good and strong on my own". She notes that she feels like her has been "keeping me in a balloon". She notes "I don't know what's true". During the interview, Jennifer became very tearful when discussing her relationship issues and past traumas. She expressed feeling isolated and confused about her current situation. She reported that her self-worth is closely tied to her relationship, making it difficult for her to separate her own identity from her partner's reactions. She is currently prescribed multiple psychiatric medications including fluoxetine, abilify, gabapentin, prazosin, Vyvanse and Strattera. Psychiatric ROS notable for no current nor history of symptoms of quiana, psychosis, OCD nor eating disorder. History of extensive trauma. Describes having "Rejection Sensitive Dysphoria" and desires a service dog for this. History of self-harm via cutting, last about 2 years ago. Past Psychiatric History Current Psychiatric Diagnosis: Unspecified depressive d/o Outpatient Services: -outpatient therapist-Joycelyn Diamond since May -[facility] - with Deepa at [employer] [facility] -Mobile psych with [facility] Previous Psych Admissions: 1 prior at [facility] in 2022 Do You Have Access To A Gun?: No History of Previous Suicide Attempt: Yes ("a long time ago" via overdose of sleeping pills >20years ago) Past Medication Trials: hx weight gain on abilify Additional Notes: history of TMS about 4 years ago Past Head Trauma/Neuro History History of Concussion/Seizure: No Allergies Allergy/AdvReac Type Severity Reaction Status Date / Time diphenhydramine AdvReac Intermediate Anxiety Verified 01/20/23 16:35 hydroxyzine AdvReac Intermediate Anxiety Verified 01/20/23 16:35 Home Medications Medication Instructions Recorded Confirmed Type atenolol 25 mg tablet 25 mg PO BID 12/18/21 11/26/24 History gabapentin 300 mg capsule 300 mg PO QID PRN Anxiety 12/18/21 11/26/24 History naproxen 500 mg tablet 500 mg PO BID PRN Pain 12/18/21 11/26/24 History prazosin 2 mg capsule 5 mg PO HS 12/18/21 11/26/24 History Prozac 40 mg PO QAM 11/26/24 11/26/24 History Vyvanse 70 mg PO QAM 11/26/24 11/26/24 History atomoxetine 40 mg capsule 40 mg PO QAM 11/26/24 11/26/24 History (Strattera) aripiprazole 2 mg tablet 2 mg PO DAILY 11/27/24 11/27/24 History Family History Family History of: Suicide Attempts Family Mental Health History Comment: Mother has hx depression and suicide attempt.Has had out pt tx Alcohol History Hx of Alcohol Use Over the Past 12 Months: Yes (occasional ETOH) AUDIT Total Score: 1 Smoking Use Have You Smoked or Used Tobacco Products in the Last 30 Days: No Smoking Status: Never smoker Substance History Hx of Prescription Med Misuse Over the Past 12 Months: No Hx of Over the Counter Med Misuse Over the Past 12 Months: No Hx of Inhalent Misuse Over the Past 12 Months: No Hx of Organic Substance Use Over the Past 12 Months: Yes (medical THC) Hx of Illegal Substances/Street Drug Use Over Past 12 Months: No Problems as a Result of Past Substance Use: None Identified Uses medical cannabis rarely, typically once every few months Personal History Living Arrangements: Home Highest Grade Completed: Graduate School Highest Grade Completed Comment: Masters degree in Occupational therapy Employment Status: Unemployed Marital Status: Number Of Children: 3 Beliefs That Will Affect Care: None Current Legal Problems: No Hx Legal Problems: No Hx Traumatic Life Events: Yes Patient History Medical History Forehead contusion Superficial laceration of forearm Multiple abrasions Alcohol intoxication resolved No pertinent family history Status post foot surgery Frostbite with tissue necrosis Surgical History History of bunionectomy of left great toe "06/28/2015" History of bunionectomy of right great toe "10/11/15-performed by Dr. Soto" Social History Smoking Status: Never smoker Preferred Language: Citizen Of [place] Communication Ability: Effective Cloth Carrier Required: No Beliefs That Will Affect Care: None Feels Safe at Home: Yes Gender Identity: Female Assistive Devices: Glasses Review of Systems Review of Systems: All systems reviewed & are unremarkable except as noted in HPI & below Physical Exam Psychiatric: Orientation: alert and oriented x 3 Apperance: appropriately dressed and + disheveled Eye Contact: + fair eye contact Motor Behavior: no abnormal motor movements Speech: normal rate/rhythm/volume of speech Affect: + depressed affect and + tearful affect (frequent episodes of crying) Mood: + depressed mood and + anxious mood Thought Process: + perseveration Thought Content: + cognitive distortions, reality based without delusions, + worthlessness and + loneliness Suicidal Thoughts: denies suicidal thoughts, denies suicidal plan and denies suicidal intent Homicidal Thoughts: denies homicidal thoughts Hallucinations: no auditory hallucinations and no visual hallucinations Cognition: recent memory grossly intact, remote memory grossly intact, attention grossly intact and language grossly intact Estimated Intelligence: consistent with education level Insight: + fair insight Judgment: + limited judgement Vital Signs (Past 24 Hours): Last Vital Signs Temp 37 C 11/27/24 02:15 Pulse 97 H 11/27/24 02:15 Resp 16 11/27/24 02:15 BP 121/79 11/27/24 02:15 Pulse Ox 97 11/27/24 02:15 O2 Del Method Room Air 11/27/24 02:15 Exam Statement: A physical exam was performed in the ED by Dr. Prieto for the purposes of medical clearance. I accept that physical as correct and adequate for the purposes of the inpatient physical exam. Results & Data ([facility]) Laboratory Results Laboratory Results - last 24 hr 11/26/24 11/26/24 11/26/24 16:56 19:45 21:00 WBC 4.88 RBC 4.51 Hgb 14.3 Hct 40.7 MCV 90.2 MCH 31.7 MCHC 35.1 RDW Std Deviation 42.5 RDW Coeff of Debbie 12.9 Plt Count 273 MPV 10.0 Immature Gran % (Auto) 0.2 Neut % (Auto) 73.0 Lymph % (Auto) 15.6 Karnes % (Auto) 9.6 Eos % (Auto) 1.0 Baso % (Auto) 0.6 Neut # (Auto) 3.56 Lymph # (Auto) 0.76 L Karnes # (Auto) 0.47 Eos # (Auto) 0.05 Baso # (Auto) 0.03 Immature Gran # (Auto) 0.01 Sodium 137 Potassium 3.5 Chloride 102 Carbon Dioxide 25 Anion Gap 10 BUN 12 Creatinine 0.86 Est Cr Clr Drug Dosing 66.0 eGFR 79.73 BUN/Creatinine Ratio 14.0 Glucose 95 Calcium 9.0 Total Bilirubin 0.4 AST 22 ALT 21 Alkaline Phosphatase 61 Total Protein 7.7 Albumin 4.4 Globulin 3.3 Albumin/Globulin Ratio 1.3 Urine Color Yellow Urine Appearance Clear Urine pH 5.5 Ur Specific [place] 1.030 Urine Protein Negative Urine Glucose (UA) Negative Urine Ketones 2+ H Urine Blood Negative Urine Nitrite Negative Urine Bilirubin Negative Urine Urobilinogen Negative Ur Leukocyte Esterase 1+ H Urine WBC (Auto) >50 H Urine RBC (Auto) 3-5 H U Hyaline Cast (Auto) 3-5 H U Epithel Cells (Auto) 3-5 H Urine Bacteria (Auto) None Seen Urine Mucus Present A Urine Test Negative Salicylates < 3.0 L Urine Opiates Screen Neg Ur Methadone, Qual Neg Urine Fentanyl Screen Neg Acetaminophen < 3 L Urine Barbiturates Neg Ur Phencyclidine (PCP) Neg U Amphetamines Confirm Pending U Amphetamin/Meth Scrn Pos H U Methamphetamin Confrm Pending MDMA (Ecstasy) Screen Neg U Benzodiazepines Scrn Neg Ur Cocaine Metabolite Neg U Marijuana (THC) Screen Pos H U Marijuana THC Carboxy Pending Drug Screen Comment Pending Ethyl Alcohol mg/dL < 10.0 SARS-CoV-2 (PCR) NEGATIVE Influenza Type A (PCR) Negative Influenza Type B (PCR) Negative RSV (RT-PCR) Negative Current Inpatient Medications Current Inpatient Medications: Current Inpatient Medications Acetaminophen (Acetaminophen 325 Mg Tab) 650 mg PO Q4H PRN PRN Reason: Headache or Minor Fever Stop: 12/27/24 08:25 Last Admin: 11/27/24 08:39 Dose: 650 mg Al Hydrox/Mg Hydrox/Simethicone (Aluminum/Magnesium Susp 30 Ml Udc) 30 ml PO Q4H PRN PRN Reason: GI Upset Stop: 12/27/24 08:25 Bismuth Subsalicylate (Bismuth Subsalicylate 262 Mg Chew) 2 tab PO Q30M PRN PRN Reason: Loose Stool/Diarrhea Stop: 12/27/24 08:25 Hydroxyzine HCl (Hydroxyzine Hcl 25 Mg Tab) 50 mg PO HSZ PRN PRN Reason: Insomnia Stop: 12/27/24 08:25 Hydroxyzine HCl (Hydroxyzine Hcl 25 Mg Tab) 25 mg PO Q4H PRN PRN Reason: Anxiety Stop: 12/27/24 08:25 Magnesium Hydroxide (Magnesium Hydroxide Susp 30 Ml Udc) 30 ml PO DAILY PRN PRN Reason: Constipation Stop: 12/27/24 08:25 Sodium Chloride (Sodium Chloride 0.65% Na Soln 45 Ml ([place])) 1 - 2 sprays NA PRN PRN PRN Reason: Nasal Dryness/Congestion Stop: 12/27/24 08:25
[2024-11-27] MEDS ORDERED: NAPROXEN 250 MG TAB PO PRN (11:24)
[2024-11-27] MEDS: ATOMOXETINE HCL 40 MG CAPSULE PO SCH (11:48)
[2024-11-27] MEDS: FLUoxetine HCL 20 MG CAP PO SCH (11:48)
[2024-11-27] MEDS: ATENOLOL 25 MG TABLET PO SCH (11:48)
[2024-11-27] MEDS: GABAPENTIN 300 MG CAP PO SCH (11:48)
[2024-11-27] MEDS: guanFACINE HCL 1 MG TAB PO SCH (21:20)
[2024-11-27] MEDS ORDERED: MIRTAZAPINE TAB 15 MG TAB PO SCH (22:00)
--- NOTE | 2024-11-28 09:10 | Psychiatric Progress Note ---
Date of Service November 28, 2024 Impression / Recommendations Impression RUPERT NELSON is a 54-year-old woman who currently lives in [place] with her and son (age 13), has a history of PTSD, MDD, NAOMY with panic attacks, ADHD, and was admitted on 11/27/24 00:56 on a 201 voluntary commitment for worsening depression and anxiety with poor sleep. Diagnostically consistent with unspecified depression with differential including major depressive disorder vs acute exacerbation of PTSD in context of emotionally controlling and volatile relationship. MNPR to recent emotional distress and trauma history A: Mood improving and more hopeful. Reviewed symptom questionnaires consistent with significant trauma hx/high DIGNA score and negative BPD screen. Discussed how trauma can impact emotional reactions/amygdala/prefrontal cortex suppression and reviewed DBT resources which could be beneficial for this which she is open to trying to use. Tolerating medication changes with improved sleep. Slightly low BP this morning but no dizziness or symptoms so felt safe to continue with guanfacine. Overall, I spent a total of 35 minutes on this case including meeting with the patient, reviewing the chart, nursing report, multidisciplinary team meeting, orders, and documentation. (1) PTSD (post-traumatic stress disorder): (2) Depressed mood: (3) Insomnia: (4) Crying: (5) Generalized anxiety disorder with panic attacks: (6) Marital conflict: (7) ADHD: Plan 11/28/2024: Continue current medications and tx plan 11/27/2024: The patient was admitted to the [facility] ([facility] mental health unit) on q15 min checks (behavioral with suicide precautions) for safety. The patient will participate in group, recreational, and milieu therapies and will be offered additional individual and family sessions as clinically appropriate. -social work to investigate possible IOP vs increasing frequency of individual therapy to twice weekly and potential alternative options for couples counseling -provide information on [place] [facility] -Medications: * Increase fluoxetine to 60mg daily * d/c prazosin * start guanfacine 1mg HS * mirtazapine 15mg HS prn for insomnia -Questionnaires: * Angela BPD screen * Trauma symptom questionnaire * DIGNA scale Inventory Assets Strengths: supportive relationships, willing to get treatment Needs: safety and stabilization, medication adjustment, additional coping skills, increased outpatient services Suicide Risk Level Suicide Risk Level: Moderate (q15 min suicide checks) (significant depression with hopelessness prior to admission but feels more hopeful, mood improving, denies SI and feels safe in the hospital and able to ask for support if needed) Risk Factors Assessment Male: No Do You Have Access To A Gun?: No Health Problems: No Mental Health Diagnoses: Yes Substance Use Disorders: No Previous Attempt: Yes Family History of Suicide: Yes (mother with attempt) Previous Psychiatric Hospitalization: Yes Hopelessness: Yes Protective Factors Assessment : Yes Responsible for Young Children: Yes (13 yo son) Employed: No Good Rapport with Provider: Yes Interval History Identifying Information RUPERT NELSON is a 54-year-old woman who currently lives in [place] with her and son (age 13), has a history of PTSD, MDD, NAOMY with panic attacks, ADHD, and was admitted on 11/27/24 00:56 on a 201 voluntary commitment for worsening depression and anxiety with poor sleep. Chief Complaint "A lot better". Review of Systems Sleep Information Total Hours of Sleep: 7 Meal Information Percent Meal Consumed - Breakfast: 0 Percent Meal Consumed - Lunch: 25 Percent Meal Consumed - Dinner: 100 Subjective Subjective Patient was seen & assessed and interval progress reviewed with nursing. Her visited which seemed to go well. She declined groups due to fatigue. She rated her mood as "exhausted" last evening. Slept well overnight, showered. Today she reports her mood is "a lot better" which she credits to reframing negative thoughts, thinking about her priorities, thinking about accepting her circumstances for what they are and getting more rest. She denies any side effects from medication adjustments. Found guanfacine very helpful for sleep. Did not have to use prn mirtazapine. Reviewed symptoms questionnaires. Physical Exam Psychiatric Orientation: alert and oriented x 3 Apperance: appropriately dressed and appropriately groomed Eye Contact: good eye contact Motor Behavior: no abnormal motor movements Speech: normal rate/rhythm/volume of speech Affect: + constricted affect Mood: + depressed mood (but improving) and + anxious mood Thought Process: goal directed thought process Thought Content: + cognitive distortions and reality based without delusions Suicidal Thoughts: denies suicidal thoughts, denies suicidal plan and denies suicidal intent Homicidal Thoughts: denies homicidal thoughts Hallucinations: no auditory hallucinations and no visual hallucinations Cognition: recent memory grossly intact, remote memory grossly intact, attention grossly intact and language grossly intact Estimated Intelligence: consistent with education level Insight: + fair insight Judgment: + fair judgement Vital Signs (Past 24 Hours) Last Vital Signs Temp 36.9 C 11/28/24 06:00 Pulse 79 11/28/24 06:37 Resp 16 11/28/24 06:00 BP 96/69 L 11/28/24 06:37 Pulse Ox 99 11/28/24 06:00 O2 Del Method Room Air 11/28/24 06:00 Results & Data ([facility]) Current Inpatient Medications Current Inpatient Medications: Current Inpatient Medications Acetaminophen (Acetaminophen 325 Mg Tab) 650 mg PO Q4H PRN PRN Reason: Headache or Minor Fever Stop: 12/27/24 08:25 Last Admin: 11/27/24 08:39 Dose: 650 mg Al Hydrox/Mg Hydrox/Simethicone (Aluminum/Magnesium Susp 30 Ml Udc) 30 ml PO Q4H PRN PRN Reason: GI Upset Stop: 12/27/24 08:25 Atenolol (Atenolol 25 Mg Tablet) 25 mg PO BID [facility] Stop: 12/27/24 11:29 Last Admin: 11/27/24 21:21 Dose: 25 mg Atomoxetine HCl (Atomoxetine Hcl 40 Mg Capsule) 40 mg PO QAM SISSY Stop: 12/27/24 11:29 Last Admin: 11/28/24 08:51 Dose: 40 mg Bismuth Subsalicylate (Bismuth Subsalicylate 262 Mg Chew) 2 tab PO Q30M PRN PRN Reason: Loose Stool/Diarrhea Stop: 12/27/24 08:25 Fluoxetine HCl (Fluoxetine Hcl 20 Mg Cap) 60 mg PO QAM [facility] Stop: 12/27/24 11:29 Last Admin: 11/28/24 08:51 Dose: 60 mg Gabapentin (Gabapentin 300 Mg Cap) 300 mg PO QID SISSY Stop: 12/27/24 11:29 Last Admin: 11/28/24 08:52 Dose: 300 mg Guanfacine HCl (Guanfacine Hcl 1 Mg Tab) 1 mg PO HS SISSY Stop: 12/27/24 21:59 Last Admin: 11/27/24 21:20 Dose: 1 mg Magnesium Hydroxide (Magnesium Hydroxide Susp 30 Ml Udc) 30 ml PO DAILY PRN PRN Reason: Constipation Stop: 12/27/24 08:25 Mirtazapine (Mirtazapine Tab 15 Mg Tab) 15 mg PO HS PRN PRN Reason: insomnia Stop: 12/27/24 21:59 Miscellaneous (*Vyvanse*Order Awaiting Action) 1 each N/A QS SISSY Stop: 12/27/24 11:59 Last Admin: 11/28/24 09:05 Dose: Not Given Naproxen (Naproxen 250 Mg Tab) 500 mg PO BID PRN PRN Reason: shoulder pain Stop: 12/27/24 11:23 Sodium Chloride (Sodium Chloride 0.65% Na Soln 45 Ml ([place])) 1 - 2 sprays NA PRN PRN PRN Reason: Nasal Dryness/Congestion Stop: 12/27/24 08:25 Mental Health & Subst Abuse Tx Psychiatrist Date Of Appointment With Psychiatric Provider: 11/30/24 Therapist Name of Therapist: Joycelyn Em Date of Therapist Appointment: 12/01/24 Speech Teacher Name of Speech Teacher: Joanie Morales Post Discharge Appointments Primary Care Physician Name Of Family Doctor/PCP: Joycelyn Nair
[2024-11-28] MEDS: MIRTAZAPINE TAB 15 MG TAB PO PRN (22:36)
--- NOTE | 2024-11-29 12:07 | Discharge Summary ---
Date of Service November 29, 2024 History of Present Illness Jennifer presents for psychiatric admission for worsening depression and anxiety with very poor sleep and difficulty functioning in the context of multiple psychosocial stressors including conflict with her and financial strain. She reports experiencing significant anxiety, which has been interfering with her sleep. She attempted to use a sleeping pill (cetirizine) but believes it caused an adverse reaction. She has been sleeping approximately 4 hours per night due to anxiety with frequent awakenings. She endorses depressive symptoms including tearfulness, "lethargy", loss interest in things, very poor sleep (difficult falling and staying asleep, on average on about 4 hours per night), decreased motivation, helplessness, hopelessness, decreased energy, decreased appetite. She denies SI but notes "I wish for something to make all this suffering stop". She cries frequently and notes "it's exhausting". She also endorses symptoms of anxiety including generalized worries, shakiness, easily overwhelmed and panic attacks. Jennifer has a history of PTSD, C-PTSD, intermittent depression, chronic anxiety, and ADHD. She also believes she may have rejection-sensitive dysphoria (RSD). Jennifer describes ongoing marital conflict, which has led to isolation from her family. She reports her has been verbally aggressive towards her and her family members. She attempted couples counseling but found it ineffective. She feels unsupported and states her blames her for their relationship issues. She expresses feeling confused and trapped in the relationship, partly due to financial constraints. She expresses frustration with their communication pattern and lack of helpfulness of recent attempt at couples counseling. She often feels unheard and after the couples counselor gave some negative feedback she felt unable to return. She notes "I've become so sensitive because I feel like nobody is in my corner". Describes a lot of difficulty in her relationship including her lying and wanting him to "take some responsibility". She identifies her main symptom targets as "I need help for my hypersensitivity" and has read about guanfacine and is potentially interested in trying this. She notes "I'm not crazy in a vacuum, I was really good and strong on my own". She notes that she feels like her has been "keeping me in a balloon". She notes "I don't know what's true". During the interview, Jennifer became very tearful when discussing her relationship issues and past traumas. She expressed feeling isolated and confused about her current situation. She reported that her self-worth is closely tied to her relationship, making it difficult for her to separate her own identity from her partner's reactions. She is currently prescribed multiple psychiatric medications including fluoxetine, abilify, gabapentin, prazosin, Vyvanse and Strattera. Psychiatric ROS notable for no current nor history of symptoms of quiana, psychosis, OCD nor eating disorder. History of extensive trauma. Describes having "Rejection Sensitive Dysphoria" and desires a service dog for this. History of self-harm via cutting, last about 2 years ago. Physical Exam Vital Signs (Past 24 Hours) Last Vital Signs Temp 36.4 C 11/29/24 06:45 Pulse 88 11/29/24 06:45 Resp 16 11/29/24 06:45 BP 110/75 11/29/24 06:47 Pulse Ox 98 11/29/24 06:45 O2 Del Method Room Air 11/29/24 06:45 Principal Diagnosis Post Traumatic Stress Disorder Psychiatric Data See daily stay summary. In short, patient was engaged with the social/therapeutic milieu of the unit, safety was maintained and the patient was cooperative with care. Medication changes included discontinuation of prazosin, discontinuation of abilify (she had not started this but seemed script was recently sent) and initiation of guanfacine IR 1mg HS for ADHD and off-label use of anxiety/insomnia/impulsivity and increased dose of fluoxetine to 60mg daily for depression/PTSD/anxuety and they tolerated this well. A support session was held and safety plan was completed prior to discharge. They participated in safety planning and in discussions about ways to seek support and recognizing warning signs and utilizing coping skills. Reviewed ways to have their safety plan and contacts easily available should thoughts of SI re-emerge in the future. Reviewed importance of seeking emergency care should SI intensify, worsen or should they feel unsafe in the future which they agree to do. On the day of discharge they stated their mood was "good" and remained future-oriented including spending time with her son and engaging in aftercare appointments for psychiatry, therapy, option for IOP and case management. Day of Discharge Assessment Today the patient voices readiness for discharge. They note improvement in mood and anxiety. They deny thoughts of harm to self or others. Thoughts are organized and they are clinically improved from admission. There is no evidence of psychosis. They improved in the hospital with support and medication adjustments. They agree to take medications as prescribed and keep follow-up appointments. At the time of the discharge they are deemed to be stable and appropriate for outpatient level of care. They are not deemed to be at imminent risk of harm to self or others. They are aware of emergency and crisis services. Knows to call 911 or go to nearest emergency care center if in a crisis which cannot be handled as an outpatient. Suicide risk assessment: Acute risk is low given improvement in mood and denial of SI, lack of access to lethal means, improvement in sleep, hopefulness. Chronic risk is moderate given some non-modifiable risk factors: psychiatric co-morbid diagnoses, prior attempt, emotional reactivity, prior psychiatric hospitalization, childhood trauma but also with protective factors including sense of responsibility to family and social supports, outpatient care in place, positive coping skills, positive problem solving, willingness to engage with treatment and self- observation. Counseled on ways to reduce acute and chronic risk including engaging with outpatient providers, using safety plan if needed, utilizing supports, taking medication, and using coping skills. Modifiable risk factors of PTSD and depression were addressed during hospitalization through development of new coping skills, review of potential benefits of DBT and tf-CBT, support meeting, safety planning, and medication adjustments. Discharge physical exam: See admission H&P, MSE per above and day of discharge summary. Overall, I spent a total of 35 minutes on this case including meeting with the patient, reviewing the chart, nursing report, multidisciplinary team meeting, discharge orders, anticipatory planning, safety planning, risk assessment and documentation. Transition of Care Transition Of Care Record: was reviewed with the patient Advance Directives Advance Directives Information Provided: Yes Advance Directives: No Mental Health Advance Directive: No Advance Directives on File: No Living Will: No Power of Building Architectural Designer: No Advance Directives Reason:: Declines as Mental Health Visit. Suicide Risk Level Suicide Risk Level Comments: Acute risk is low given denial of SI, see further assessment above Risk Factors Assessment Male: No Do You Have Access To A Gun?: No Health Problems: No Mental Health Diagnoses: Yes Substance Use Disorders: No Previous Attempt: Yes Family History of Suicide: Yes (mother with attempt) Previous Psychiatric Hospitalization: Yes Hopelessness: No Protective Factors Assessment : Yes Responsible for Young Children: Yes (13 yo son) Employed: No Supportive Family: Yes Good Rapport with Provider: Yes Discharge Data Lab Results 11/26/24 11/26/24 11/26/24 16:56 19:45 21:00 WBC 4.88 RBC 4.51 Hgb 14.3 Hct 40.7 MCV 90.2 MCH 31.7 MCHC 35.1 RDW Std Deviation 42.5 RDW Coeff of Debbie 12.9 Plt Count 273 MPV 10.0 Immature Gran % (Auto) 0.2 Neut % (Auto) 73.0 Lymph % (Auto) 15.6 [place] % (Auto) 9.6 Eos % (Auto) 1.0 Baso % (Auto) 0.6 Neut # (Auto) 3.56 Lymph # (Auto) 0.76 L [place] # (Auto) 0.47 Eos # (Auto) 0.05 Baso # (Auto) 0.03 Immature Gran # (Auto) 0.01 Sodium 137 Potassium 3.5 Chloride 102 Carbon Dioxide 25 Anion Gap 10 BUN 12 Creatinine 0.86 Est Cr Clr Drug Dosing 66.0 eGFR 79.73 BUN/Creatinine Ratio 14.0 Glucose 95 Calcium 9.0 Total Bilirubin 0.4 AST 22 ALT 21 Alkaline Phosphatase 61 Total Protein 7.7 Albumin 4.4 Globulin 3.3 Albumin/Globulin Ratio 1.3 Urine Color Yellow Urine Appearance Clear Urine pH 5.5 Ur Specific [place] 1.030 Urine Protein Negative Urine Glucose (UA) Negative Urine Ketones 2+ H Urine Blood Negative Urine Nitrite Negative Urine Bilirubin Negative Urine Urobilinogen Negative Ur Leukocyte Esterase 1+ H Urine WBC (Auto) >50 H Urine RBC (Auto) 3-5 H U Hyaline Cast (Auto) 3-5 H U Epithel Cells (Auto) 3-5 H Urine Bacteria (Auto) None Seen Urine Mucus Present A Urine Test Negative Salicylates < 3.0 L Urine Opiates Screen Neg Ur Methadone, Qual Neg Urine Fentanyl Screen Neg Acetaminophen < 3 L Urine Barbiturates Neg Ur Phencyclidine (PCP) Neg U Amphetamin/Meth Scrn Pos H MDMA (Ecstasy) Screen Neg U Benzodiazepines Scrn Neg Ur Cocaine Metabolite Neg U Marijuana (THC) Screen Pos H Ethyl Alcohol mg/dL < 10.0 SARS-CoV-2 (PCR) NEGATIVE Influenza Type A (PCR) Negative Influenza Type B (PCR) Negative RSV (RT-PCR) Negative Hospital Course (1) PTSD (post-traumatic stress disorder): (2) Depressed mood: (3) Insomnia: (4) Crying: (5) Generalized anxiety disorder with panic attacks: (6) Marital conflict: (7) ADHD: Plan 11/29/2024: -Feels safe and desires discharge 11/28/2024: Continue current medications and tx plan 11/27/2024: The patient was admitted to the [facility] ([facility] mental [facility]) on q15 min checks (behavioral with suicide precautions) for safety. The patient will participate in group, recreational, and milieu therapies and will be offered additional individual and family sessions as clinically appropriate. -social work to investigate possible IOP vs increasing frequency of individual therapy to twice weekly and potential alternative options for couples counseling -provide information on [place] [facility] -Medications: * Increase fluoxetine to 60mg daily * d/c prazosin * start guanfacine 1mg HS * mirtazapine 15mg HS prn for insomnia -Questionnaires: * Angela BPD screen * Trauma symptom questionnaire * DIGNA scale Mental Health & Subst Abuse Tx Psychiatrist Name of Psychiatrist: Joycelyn Shaver @ [facility] Psychiatrist's Date Of Appointment With Psychiatric Provider: 11/30/24 Time of Appointment with Psychiatrist: 1:30pm Psychiatrist Release of Information: Obtained Therapist Name of Therapist: Joycelyn Em Therapist's Date of Therapist Appointment: 12/01/24 Time of Therapist Appointment: 1:00pm Auto Top Mechanic Name of Auto Top Mechanic: Joanie Morales Phone Number for Auto Top Mechanic: [phone] Date of Appointment with Auto Top Mechanic: 11/30/24 Time of Appointment with Auto Top Mechanic: 1:15pm Case Management Appointment Comment: Joanie will be attending psych appt with you. Auto Top Mechanic Release of Information: Obtained Post Discharge Appointments Primary Care Physician Name Of Family Doctor/PCP: Joycelyn Nair Primary Care Primary Care Release of Information: Obtained Partial or Psych Rehab Name of Partial or Psych Rehab: IOP @ [facility] Phone Number of Partial or Psych Rehab: [phone] Partial or Psych Rehab Appointment Comment: can call to get on waitlist Discharge Plan Discharge Items Patient Disposition: Home - Self-Care Reason For Visit: UNSPECIFIED DEPRESSIVE ORDER D/O Discharge Diagnosis: Post Traumatic Stress Disorder Activity: Resume your previous activity Non-emergency contact: Primary Care Provider, Psychiatrist, Therapist and Guest Service Host Call non-emergency contact if: you have any medication questions and your symptoms worsen Follow-up/Referrals: Joycelyn Nair DO [Primary Care Provider] - Diet: Regular Addtl Attending Provider Instructions: Optional mobile apps we discussed: -Suicide safety plan -Virtual Hope Box SPECIAL CARE INSTRUCTIONS: 1. Follow through with your scheduled aftercare appointments. If unable to keep an appointment, please call to reschedule. 2. Take your medication only as prescribed. Medication should not be changed or stopped without the approval of your doctor. In the event of worsening symptoms or concerns about side effects, contact your doctor immediately. 3. Utilize new healthy coping skills, anger management skills, and stress management skills learned during your hospitalization. Journal feelings and process them with a support person. Identify stressors or situations that may result in relapse, deterioration or inappropriate behaviors and develop a plan to deal with those issues. 4. If your coping skills are ineffective and you are in crisis, contact your outpatient providers for direction. If unable to reach your providers, please call the [facility] CRISIS LINE AT , go to the [facility] walk-in center at [address], [facility] [address], [place], or go to the closest Emergency Room. 5. Avoid alcohol and un-prescribed drugs. 6. You have been provided with the Mental Health Advance Directives Pamphlet for your review. 7. Your condition is stable for discharge to outpatient level of care, but recovery is an ongoing process. Ifthoughts to harm yourself or others return, follow the safety plan developed during your stay. Planning for a safe return home includes securing weapons. Our treatment team recommends weaponsbe removed from the home until your outpatient provider reassesses your progress. In rare cases where the items themselvescannot be removed, guns and ammunitionshould be secured separatelyand keys stored by a reliable personoutside of the home. If you were admitted on an involuntary commitment, the police or other legal authorities may be involved in this process. AFTERCARE APPOINTMENTS: * Please call your insurance company prior to your scheduled appointment to confirm your aftercare providers are covered. Take your insurance information to your appointments. WHO TO CALL AND WHEN: Medical Emergencies: For questions or emergencies related to your hospital stay, please contact the Inpatient Behavioral Health Unit at [phone]. A alpine patroller is on-call 19/05 for the Behavioral Health Unit for emergencies At any time you feel your situation is an emergency, you may also call 911 immediately. [place] Crisis Hotline: 988 Pending Studies at Discharge: No Stand-Alone Forms: My [facility] Medications and DC Order Prescriptions: New guanfacine 1 mg Tablet 1 mg PO HS 30 Days Qty: 30 0RF fluoxetine 60 mg tablet 60 mg PO DAILY 30 Days Qty: 30 0RF Continued atenolol 25 mg tablet 25 mg PO BID gabapentin 300 mg capsule 300 mg PO QID PRN (Reason: Anxiety) naproxen 500 mg tablet 500 mg PO BID PRN (Reason: Pain) Vyvanse 70 mg PO QAM atomoxetine [Strattera] 40 mg Capsule 40 mg PO QAM Discontinued prazosin 2 mg capsule 5 mg PO HS Patient Comments: Last fill for 5mg, but patient thinks she takes 7mg Prozac 40 mg PO QAM aripiprazole 2 mg tablet 2 mg PO DAILY Discharge Orders: Discharge Order (Routine); Ordered 11/29/24 Ordered By: Barbara Alejandro Admission Data Admit Date/Time: 11/27/24 00:56 Attending Provider: Barbara Alejandro Admit Provider: Barbara Alejandro Primary Care Provider: Joycelyn Nair Other Interventions: Discharge Summary Assessment (RN) Last Done: 11/29/24 12:56 Coding Level of Care Code 55641 D/C day mgmt > 30 min Diagnoses PTSD (post-traumatic stress disorder) F43.10 Depressed mood R45.89 Insomnia G47.00 Crying R45.89 Generalized anxiety disorder with panic attacks F41.1; F41.0 Marital conflict Z63.0 ADHD F90.9
[2024-11-29 16:27] LABS: Amphetamine Urine, Confirm 12386 ng/mL (<250); Marijuana Quant, GCMS Urine 86 ng/mL (<5); Methamphetamine, Ur Confirm NEGATIVE ng/mL (<250)
== END 2024-11-29 13:55 | disposition home or self-care (01) | DRG 882 ==
LOC: ED 16:27 → 3S 11-27 00:56